=== PATIENT | male | born 1970 | race Two or more races ===

== ENCOUNTER 2020-07-09 09:59 | Outpatient (REF) | payer OTHER, SELFPAY | END 2020-07-09 10:00 | disposition home or self-care (01) | LOC: HO.LAB 09:59 | PROVIDERS: Visit Provider Internal Medicine | DX: Z20.822 Contact with and (suspected) exposure to COVID-19 (principal) | CPT/HCPCS: 36415; C9803; U0003; U0005 ==

== ENCOUNTER 2020-08-22 08:14 | Outpatient (REF) | payer OTHER, SELFPAY ==
[2020-08-22 09:33] LABS: MANUAL DIFF FLAG NO
[2020-08-22 09:37] LABS: Basophils Absolute Auto 0.1 X10*3/uL (0.0-0.2); Eosinophils Absolute Auto 0.2 X10*3/uL (0.0-0.4); Eosinophils Percent Auto 3.2 % (0-4); Hematocrit 47.4 % (42-52); Imm Gran Abs Auto 0.01 X10*3/uL (0.00-0.03); Imm Gran Pct Auto 0.2 % (0.0-0.4); Lymphocytes Percent Auto 40.3 % (20-40); Mean Corpuscular HGB Conc 31.6 g/dl (31.0-36.0); Mean Corpuscular Hemoglobin 27.4 pg (27.0-33.0); Mean Corpuscular Volume 86.7 fL (80-98); Mean Platelet Volume 10.9 fL (9.4-12.4); Monocytes Absolute Auto 0.6 X10*3/uL (0.1-1.2); Monocytes Percent Auto 11.7 % (2-11); Neutrophils Absolute Auto 2.2 X10*3/uL (2.0-8.3); Neutrophils Percent Auto 43.6 % (45-73); Platelet Count 214 X10*3/uL (160-400); Red Blood Count 5.47 X10*6/uL (4.60-5.80); Red Cell Distribution Width 15.4 % (11.0-16.0)
[2020-08-22 09:56] LABS: Alanine Aminotransferase 28 U/L (0-40); Albumin Level 4.4 g/dL (3.5-5.0); Alkaline Phosphatase 78 U/L (39-117); Anion Gap 12 (12-20); Aspartate Amino Transferase 56 U/L (5-37); Bilirubin Total 0.5 mg/dL (0.0-1.0); Blood Urea Nitrogen 25 mg/dL (9-16); Calcium 9.1 mg/dL (8.4-10.2); Carbon Dioxide 28 mmol/L (22-29); Chloride 107 mmol/L (96-108); Cholesterol 192 mg/dL; Estimated Glomerular Filt Rate > 60; Glucose Fasting 103 mg/dL (60-99); HDL Cholesterol 57 mg/dL; LDL Cholesterol Calculated 125 mg/dl; Potassium 5.1 mmol/L (3.3-5.1); Sodium 142 mmol/L (135-145); Total Protein 7.3 g/dL (6.5-8.0); Triglycerides 52 mg/dL
[2020-08-22 10:10] LABS: Hepatitis B Surface Antigen Negative (Negative)
[2020-08-22 10:18] LABS: HBS Num1 0.01 mIU/mL (0-7.99); HBc Num1 0.05 S/CO (0.00-0.79); Hepatitis A Antibody IgM 0.11 Index (0-0.79); Hepatitis B Core Antibody Nonreactive (Nonreactive); ~Hepatitis A Antibody IgM Nonreactive (Nonreactive); ~Hepatitis B Surface Antibody NONREACTIVE (Nonreactive); ~Hepatitis C Antibody Reactive (Nonreactive)
[2020-08-22 10:20] LABS: Prostate Specific Antigen Scr 0.69 ng/mL (<0.05-4.0); TSH reflex Free T4 1.19 uIU/mL (0.32-4.0)
== END 2020-08-22 08:15 | disposition home or self-care (01) ==
LOC: HO.LAB 08:14
PROVIDERS: Visit Provider Nurse Practitioner Family
DX: Z00.00 Encounter for general adult medical examination without abnormal findings (principal); Z12.5 Encounter for screening for malignant neoplasm of prostate
CPT/HCPCS: 36415; 80053; 80061; 84153; 84443; 85025; 86704; 86706; 86709; 86803; 87340

== ENCOUNTER 2020-09-10 12:11 | Emergency (ER) | payer OTHER, SELFPAY ==
[2020-09-10 12:33] VITALS: BP 143/62; PULSE 86; RESP 16; TEMP 36.8; O2SAT 97; BMI 25.0
[2020-09-10 13:27] LABS: COVID-19 Test Negative (Negative); IDNOW Serial# 08D9AD1C
--- NOTE | 2020-09-10 14:02 | ED.GENADULT ---
HPI - General Adult General Chief complaint: General Medical Stated complaint: SORE THROAT Time Seen by Provider: 09/10/20 14:02 Source: patient Mode of arrival: ambulatory Limitations: no limitations History of Present Illness HPI narrative: 50-year-old male history of gastroesophageal reflux disease otherwise denies any past medical or surgical history He presents today with complaint of sore throat and runny nose for the past several days. He otherwise denies any fever, chest pain, shortness of breath No other complaints. No recent travel or sick contacts. Onset (ago): day(s) (5) Radiation: non-radiation Severity: mild Relieving factors: none Exacerbating factors: none Associated symptoms: denies other symptoms Treatments prior to arrival: none Related Data Home Medications Medication Instructions Recorded Confirmed omeprazole 20 mg capsule,delayed 20 mg PO DAILY 08/21/20 release Allergies Allergy/AdvReac Type Severity Reaction Status Date / Time No Known Allergies Allergy Unverified 02/14/20 19:41 [No Known Allergies*] Review of Systems Review of Systems: Constitutional: No Weight loss, No Fever, No Chills, No Night Sweats, No Fatigue, No Malaise ENT/Mouth: No Hearing loss, No Ear Pain, positive Nasal Congestion, No Sinus Pain, No Hoarseness, positive sore throat, positive Rhinorrhea, No Swallowing Difficulty Eyes: No Eye Pain, No Swelling, No Redness, No Foreign Body, No Discharge, No Vision Changes Cardiovascular: No Chest Pain, No SOB, No Dyspnea on Exertion, No Orthopnea, No Edema, No Palpitations Respiratory: No Cough, No Sputum, No Wheezing, No Smoke Exposure, No Dyspnea Gastrointestinal: No Nausea, No Vomiting, No Diarrhea, No Constipation, No abdominal Pain, No Hematochezia, No Melena Genitourinary: no irregular bleeding, No Dysuria, No Urinary Frequency, No Hematuria, No Urinary Incontinence, No Urgency, No Flank Pain, No Urinary Flow Changes, No Hesitancy Musculoskeletal: No joint pain, No Myalgias, No Joint Swelling Skin: No Skin Lesions, No rash Neuro: No Weakness, No Numbness, No Paresthesias, No Loss of Consciousness, No Dizziness, No Headache Psych: No Social Issues Heme/Lymph: No Bruising, No Bleeding,No Lymphadenopathy Endocrine: No Polyuria, No Polydipsia, No Temperature Intolerance Yes all other systems are reviewed and are negative PMFSH Past Medical History Medical History (Updated 09/10/20 @ 14:24 by Mo Hines NP) Physical exam Family History Family History (Updated 08/21/20 @ 08:54 by Bree Baez) Mother Diabetes Father Heart attack Social History Social History (Updated 08/21/20 @ 08:54 by Bree Baez) Alcohol intake: current Smoking Status: Never smoker Advance Directives: No Advance Directives Information Provided: No Physical Exam Vital Signs: Vital Signs: Last Vital Signs Temp 98.3 F 09/10/20 12:33 Pulse 86 09/10/20 12:33 Resp 16 09/10/20 12:33 BP 143/62 H 09/10/20 12:33 Pulse Ox 97 09/10/20 12:33 Body Mass Index 25.0 Reviewed Const: General: cooperative and healthy appearing; No acute distress or intoxicated appearing Nutritional Appearance: average body habitus Orientation/consciousness: patient oriented x3 HENMT: Head: Yes normal to inspection Ears: hearing grossly normal bilaterally Eyes: General: appearance normal, both eyes and all related structures Visual Guthrie: normal visual guthrie by confrontation Neck: Neck: Yes normal visual inspection, No positive Brudzinski's sign, No positive Kernig's sign and No tender Thyroid: Thyroid normal Chest: Chest palpation & inspection: normal inspection of the chest Resp: Effort & Inspection: normal respiratory effort Auscultation: clear to auscultation bilaterally Cardio: Jugular venous distension: no JVD Rhythm: regular rhythm Heart sounds: S1 normal heart sound present and S2 normal heart sound present GI: Inspection: Yes normal to inspection Palpation (GI): Soft to palpation Percussion: Yes normal to percussion Auscultation: normal bowel sounds : General: Yes no CVA tenderness Back/Spine/Pelvis: Back: no CVA tenderness Skin: General skin exam: no rashes or lesions noted Neuro: General: patient oriented x3 Extrem: General: Yes normal to inspection Course Reevaluation(s) Reevaluation #1: AP consistent with mild viral rhinitis, COVID/rapid strep negative will send for culture. Overall nontoxic appearing possibility rest of having false negative COVID test this was reviewed with patient. Will practice precaution return follow-up instructions. Otherwise stable for discharge. Medical Decision Making Lab Data Labs: Lab Results 04/14/21 Range/Units 12:55 COVID-19 ([facility]) Negative (Negative) COVID-19 Clin Com See Note Discharge Plan Discharge Clinical Impression: Viral upper respiratory tract infection Patient Disposition: Home, Self-Care Instructions: Viral Syndrome (ED) Additional Instructions: His strep test was negative today, will send this for culture will call you with results YOUR COVID TEST WAS NEGATIVE TODAY Home care as instructed Return if any concerns or worsening symptoms Follow up with her primary care doctor discussed Thank you Referrals: Yesi Crews NP [Primary Care Provider] - 1 week Stand Alone Forms: Work/School Release
== END 2020-09-10 14:38 | disposition home or self-care (01) ==
PROVIDERS: Emergency Provider Emergency Medicine Emergency Medical Services; PCP Nurse Practitioner Family
DX: J06.9 Acute upper respiratory infection, unspecified (principal); Z20.822 Contact with and (suspected) exposure to COVID-19; J02.9 Acute pharyngitis, unspecified; K21.9 Gastro-esophageal reflux disease without esophagitis
CPT/HCPCS: 36415; 87071; 87635; 87880; 99283

== ENCOUNTER 2021-06-02 11:21 | Emergency (ER) | payer OTHER, SELFPAY ==
--- NOTE | ~2021-06-02 | XR_ITS ---
EXAMINATION: XR CHEST CLINICAL INFORMATION: Hemoptysis COMPARISON: None TECHNIQUE: 2 views of the chest were obtained. FINDINGS: No significant abnormality is noted involving the heart, lungs, mediastinum, bony thorax or soft tissues. XR/XR chest 2V IMPRESSION: Unremarkable examination.
[2021-06-02 12:42] VITALS: BP 155/97; PULSE 69; RESP 18; TEMP 36.7; O2SAT 97; BMI 30.7
[2021-06-02 13:25] LABS: COVID-19 Test Negative (Negative)
--- NOTE | 2021-06-02 13:51 | ED_ITS ---
HPI - URI/Sore Throat General Chief Complaint: Upper Respiratory Symptoms Stated Complaint: covid sx Time Seen by Provider: 06/02/21 13:43 Source: patient Mode of arrival: ambulatory Limitations: no limitations History of Present Illness HPI Narrative: 42-year-old male presents to emergency department complaining of cough. Patient states he is vaccinated for COVID he denies fevers or chills he states that his cough to come with intermittent bloody sputum as well as green sputum. He states he does not know of any sick contacts he has had he denies any falls or injuries he states he does not smoke but does drink out every day Related Data Home Medications Medication Instructions Recorded Confirmed omeprazole 20 mg capsule,delayed 20 mg PO DAILY 08/21/20 release Allergies Allergy/AdvReac Type Severity Reaction Status Date / Time No Known Allergies Allergy Verified 06/02/21 12:41 [No Known Allergies*] Review of Systems Review of Systems: Review of systems: General: Patient denies any fever chills recent illness or falls Musculoskeletal: Denies back pain or body aches or other injuries HEENT: denies headache, runny nose, ear pain Respiratory: Call denies shortness of breath, Cardiovascular: no chest pain or palpitations : denies dysuria, frequency Abdomen: no nausea vomiting denies abdominal pain Extremities: no swelling, no pain Skin: no diaphoresis Yes all other systems are reviewed and are negative PMFSH Past Medical History Medical History (Updated 06/02/21 @ 13:53 by Kunal Kerr DO) Physical exam Family History Family History (Updated 08/21/20 @ 08:54 by Bree Baez) Mother Diabetes Father Heart attack Social History Social History (Updated 08/21/20 @ 08:54 by Bree Baez) Alcohol intake: current Advance Directives: No Advance Directives Information Provided: No Physical Exam Vital Signs: Vital Signs: Last Vital Signs Temp 98.1 F 06/02/21 12:42 Pulse 69 06/02/21 12:42 Resp 18 06/02/21 12:42 BP 155/97 H 06/02/21 12:42 Pulse Ox 97 06/02/21 12:42 BMI result Body Mass Index 30.7 General: Well-appearing well-nourished in no signs of distress HEENT: Normocephalic atraumatic Neck: No signs of JVD, no masses no tenderness or lymphadenopathy Cardiovascular: Regular rate and rhythm Respiratory: Clear to auscultation bilaterally Abdomen: Soft nontender no masses rectal exam performed guiac negative quality control representative confirmed. Extremities: Normal pedal pulses no signs of edema Skin: Dry warm no rashes Back: No tenderness full ROM MDM - URI/Sore Throat MDM Narrative Medical decision making narrative: Patient looks well has a negative x-ray and normal labs COVID is negative I will discharge home with PCP follow Lab Data Labs: Lab Results 06/02/21 Range/Units 12:45 COVID-19 ([facility]) Negative (Negative) COVID-19 Clin Com See Note Discharge Plan Discharge Clinical Impression: Upper respiratory infection, Bronchitis Patient Disposition: Home, Self-Care Instructions: Acute Bronchitis (ED) Additional Instructions: Please call follow-up with her doctor if you have any other concerns please do not hesitate to come back to emergency department
== END 2021-06-02 14:02 | disposition home or self-care (01) ==
PROVIDERS: Emergency Provider Student in an Organized Health Care Education/Training Program
DX: J06.9 Acute upper respiratory infection, unspecified (principal); J40 Bronchitis, not specified as acute or chronic; Z20.822 Contact with and (suspected) exposure to COVID-19
CPT/HCPCS: 71046; 87635; 99283

== ENCOUNTER 2021-10-30 07:01 | Outpatient (REF) | payer OTHER, SELFPAY ==
[2021-10-30 07:22] LABS: Basophils Percent Auto 0.5 % (0-2); Eosinophils Absolute Auto 0.1 X10*3/uL (0.0-0.4); Eosinophils Percent Auto 3.2 % (0-4); Hematocrit 46.6 % (42.0-52.0); Hemoglobin 15.1 g/dl (14.0-18.0); Imm Gran Abs Auto 0.01 X10*3/uL (0.00-0.03); Imm Gran Pct Auto 0.2 % (0.0-0.4); Lymphocytes Absolute Auto 1.5 X10*3/uL (1.2-4.9); Lymphocytes Percent Auto 36.1 % (20-40); MANUAL DIFF FLAG NO; Mean Corpuscular HGB Conc 32.4 g/dl (31.0-36.0); Mean Corpuscular Hemoglobin 27.4 pg (27.0-33.0); Mean Corpuscular Volume 84.4 fL (80.0-98.0); Mean Platelet Volume 10.2 fL (9.4-12.4); Monocytes Absolute Auto 0.4 X10*3/uL (0.1-1.2); Monocytes Percent Auto 9.7 % (2-11); Neutrophils Percent Auto 50.3 % (45-73); Platelet Count 193 X10*3/uL (160-400); Red Blood Count 5.52 X10*6/uL (4.60-5.80)
[2021-10-30 07:44] LABS: Alanine Aminotransferase 25 U/L (0-40); Albumin Level 4.5 g/dL (3.5-5.0); Alkaline Phosphatase 81 U/L (39-117); Anion Gap 12 (12-20); Aspartate Amino Transferase 58 U/L (5-37); Bilirubin Total 0.7 mg/dL (0.0-1.0); Blood Urea Nitrogen 14 mg/dL (9-16); Calcium 9.8 mg/dL (8.4-10.2); Carbon Dioxide 27 mmol/L (22-29); Chloride 104 mmol/L (96-108); Cholesterol 211 mg/dL; Estimated Glomerular Filt Rate > 60; Glucose Random 122 mg/dL (60-115); HDL Cholesterol 69 mg/dL; LDL Cholesterol Calculated 131 mg/dl; Potassium 3.8 mmol/L (3.3-5.1); Sodium 139 mmol/L (135-145); Total Protein 7.5 g/dL (6.5-8.0); Triglycerides 58 mg/dL
[2021-10-30 07:48] LABS: Estimated Average Glucose 108 mg/dL; Hemoglobin A1c % 5.4 %
[2021-10-30 08:03] LABS: ~HepC Num1 1.37 S/CO (0.00-0.79); ~Hepatitis C Antibody Reactive (Nonreactive)
[2021-10-30 09:03] LABS: Folate 18.5 ng/mL (> or = 4.0); Vitamin B12 258 pg/mL (200-900)
[2021-11-01 13:06] LABS: HCV RNA PCR Qn <1.18 NOT DETECTED Log IU/mL (NOT DETECTED); HCV RNA PCR Qn <15 NOT DETECTED IU/mL (NOT DETECTED)
== END 2021-10-30 07:02 | disposition home or self-care (01) ==
LOC: HO.LAB 07:01
PROVIDERS: PCP Internal Medicine; Visit Provider Internal Medicine
DX: R76.8 Other specified abnormal immunological findings in serum (principal); R73.01 Impaired fasting glucose; E78.00 Pure hypercholesterolemia, unspecified
CPT/HCPCS: 36415; 80053; 80061; 82607; 82746; 83036; 84439; 84443; 85025; 86803; 87902

== ENCOUNTER 2022-01-07 07:59 | Outpatient (REF) | payer OTHER, SELFPAY ==
--- NOTE | ~2022-01-07 | US_ITS ---
EXAMINATION: US ABDOMEN COMPLETE CLINICAL INFORMATION: Other specified abnormal findings of blood chemistry. COMPARISON: None TECHNIQUE: Real-time imaging of the abdominal viscera. FINDINGS: PANCREAS: Limited. The visualized pancreatic head and body are normal in appearance. The remainder of the pancreas is obscured from visualization by the overlying bowel gas. ABDOMINAL AORTA: The proximal, mid, and distal segments are normal in caliber. INFERIOR VENA CAVA: Visualized portions are normal. LIVER: The liver is normal in size. The liver contour is normal. There is diffuse increased liver parenchymal echogenicity. No focal hepatic lesion. There is no intrahepatic biliary duct dilatation seen. GALLBLADDER: Normal. The gallbladder is physiologically distended without evidence of stones, sludge, polyps, wall thickening or pericholecystic fluid. COMMON BILE DUCT: Normal in caliber measuring 0.4 cm in diameter. RIGHT KIDNEY: Normal. No hydronephrosis. No renal calculi or focal parenchymal lesions. The kidney measures 11.3 cm in maximum dimension. LEFT KIDNEY: Normal. No hydronephrosis. No renal calculi or focal parenchymal lesions. The kidney measures 10.6 cm in maximum dimension. SPLEEN: Normal. The spleen measures 11.3 cm in maximum dimension. FREE FLUID: None. US/US abdomen complete IMPRESSION: There is generalized increase in hepatic echotexture, consistent with fatty infiltration or hepatocellular disease. Please correlate clinically. No focal hepatic mass or intrahepatic biliary dilatation is seen.
== END 2022-01-07 08:00 | disposition home or self-care (01) ==
LOC: HO.US 07:59
PROVIDERS: Visit Provider Internal Medicine
DX: R79.89 Other specified abnormal findings of blood chemistry (principal); Z12.11 Encounter for screening for malignant neoplasm of colon
CPT/HCPCS: 76700; 99202

== ENCOUNTER 2022-05-03 09:44 | Emergency (ER) | payer OTHER, SELFPAY ==
--- NOTE | 2022-05-03 | ECG_ITS ---
Test Reason : med clearance Blood Pressure : / mmHG Vent. Rate : 076 BPM Atrial Rate : 076 BPM P-R Int : 158 ms QRS Dur : 086 ms QT Int : 348 ms P-R-T Axes : 054 000 029 degrees QTc Int : 391 ms Normal sinus rhythm Normal ECG No previous ECGs available Referred By: Generic ED Physician Electronically Signed By:GEREMIAS EL MD
[2022-05-03 10:05] VITALS: BP 143/84; PULSE 70; RESP 18; TEMP 36.6; O2SAT 97
[2022-05-03 11:05] LABS: IDNOW Serial# 08D9AD1C; Strep A Nucleic Acid Negative (Negative)
[2022-05-03 11:26] LABS: Influenza A PCR NEGATIVE (Negative); Influenza B PCR NEGATIVE (Negative); Resp Syncy Virus RNA Qual PCR NEGATIVE (Negative); SARS COV2 PCR INHOUSE POSITIVE (Negative)
[2022-05-03 12:21] VITALS: BP 128/78; PULSE 74; RESP 16; TEMP 37.2; O2SAT 96
--- NOTE | 2022-05-03 13:10 | ED.GENADULT ---
HPI - General Adult General Chief complaint: Upper Respiratory Symptoms Stated complaint: sore throat nasal congestion Time Seen by Provider: 05/03/22 12:25 Source: patient Mode of arrival: ambulatory Limitations: no limitations History of Present Illness HPI narrative: 51-year-old male presents to ED for coughing phlegm and chest pain only when he cough with nasal congestion since Tuesday. Patient also has sore throat. Related Data Home Medications Medication Instructions Recorded Confirmed omeprazole 20 mg capsule,delayed 20 mg PO DAILY 08/21/20 01/15/22 release Previous Rx's Medication Instructions Recorded blood pressure monitor (Blood #1 ea 10/27/21 Pressure Kit) clotrimazole 1 % topical cream 1 appl topical BID 4 weeks #45 10/27/21 grams bisacodyl 5 mg tablet,delayed 10 mg PO ONCE colonoscopy prep 1 01/07/22 release (Dulcolax (bisacodyl)) day #2 tabs polyethylene glycol 3350 17 238 g PO ONCE 1 day #238 grams 01/07/22 gram/dose oral powder (Miralax) Allergies Allergy/AdvReac Type Severity Reaction Status Date / Time No Known Allergies Allergy Verified 05/03/22 10:08 [No Known Allergies*] Review of Systems Review of Systems: Cough, sore throat, green phlegm Yes all other systems are reviewed and are negative [facility] Past Medical History Medical History (Updated 05/03/22 @ 13:18 by SALLY Chau) Hepatitis C antibody positive in blood Overweight (BMI 25.0-29.9) Polysubstance abuse Surgical History (Updated 01/15/22 @ 10:21 by Breann Bernard RN) History of esophagogastroduodenoscopy (EGD) Family History Family History Mother Diabetes Father Heart attack Social History Social History Housing: Apartment Alcohol intake: current Patient Tobacco Use Status: Former Tobacco user Tobacco use type: Cigarette Years Smoked: [id number] e-Cigarette/Vaping Use: Never Used Second Hand Smoke Exposure: No Advance Directives: No Advance Directives Information Provided: Yes Current occupational status: employed Cognitive needs: No Hearing needs: No Vision needs: No Physical Exam ED Vital Signs: Vital Signs - 24 hr 05/03/22 10:05 05/03/22 12:21 Temperature 97.9 F 99.0 F Pulse Rate 70 74 Respiratory Rate 18 16 Blood Pressure 143/84 H 128/78 Pulse Oximetry 97 96 Oxygen Delivery Method Room Air Room Air BMI result Body Mass Index 30.0 Const General: cooperative, healthy appearing, comfortable, no acute distress, well developed, alert and awake Orientation/consciousness: oriented to person, oriented to place, oriented to time and patient oriented x3 HENMT Head: Yes normal to inspection, Yes No palpable skull fracture present, Yes normocephalic, Yes atraumatic and No abrasion Eyes General: appearance normal, both eyes and all related structures Neck Neck: Yes normal visual inspection, Yes full ROM, Yes no lymphadenopathy, Yes no meningeal signs, Yes trachea midline, No supple and No tender Chest Chest palpation & inspection: normal inspection of the chest and normal palpation of entire chest wall Resp Effort & Inspection: normal respiratory effort and able to speak in complete sentences Auscultation: clear to auscultation bilaterally Cardio Jugular venous distension: no JVD Heart sounds: S1 normal heart sound present and S2 normal heart sound present GI Inspection: Yes normal to inspection and No abdominal wall ecchymosis Palpation (GI): Soft to palpation, not firm, nontender, no guarding and not rigid General: No CVA tenderness and Yes no CVA tenderness Back/Spine/Pelvis Back: no CVA tenderness, No CVA tenderness and No back tenderness Skin General skin exam: no rashes or lesions noted and elasticity normal Neuro General: oriented to person, oriented to place, oriented to time, patient oriented x3, gait normal, tone normal and no meningeal signs Cranial nerves: Yes CN's II-XII intact bilaterally Extrem General: Yes normal to inspection and Yes full ROM Psych Appearance: grossly normal, well kempt and not disheveled Course Course Course Narrative: SARs EKG ordered. Reevaluation(s) Reevaluation #1: EKG negative STEMI. SARs COVID positive. EKG: Normal sinus rhythm. Normal EKG. Ventricular rate 76. OR interval 150. QRS 86. QTC 391. Negative STEMI Time: 13:15 Medical Decision Making Medical Decision Making [facility] Narrative: Patient's SARs COVID positive. Not suspecting OR. patient not in respiratory distress Discharge Plan Discharge Clinical Impression: COVID-19 Patient Disposition: Home, Self-Care Instructions: COVID-19 (Coronavirus Disease 2019) (ED) Additional Instructions: Eres positivo para COVID-19. Recomendar reposo, hidrataci?n oral y autoaislamiento. Regrese al servicio de urgencias por cualquier dolor en el pecho, dificultad para respirar, tos con magaly, hinchaz?n de las piernas, dolor en la pantorrilla, debilidad, mareos, cualquier otro s?ntoma preocupante. Por favor, chuck un seguimiento con el proveedor de atenci?n primaria. Prescriptions: No Action omeprazole 20 mg capsule,delayed release(DR/EC) 20 mg PO DAILY (DME) blood pressure monitor [Blood Pressure Kit] Kit See Rx Instructions .ROUTE .MEDSUPPLY Qty: 1 0RF Rx Instructions: As directed clotrimazole 1 % cream 1 appl topical BID 28 Days Qty: 45 0RF bisacodyl [Dulcolax (bisacodyl)] 5 mg tablet,delayed release (DR/EC) 10 mg PO ONCE 1 Days Qty: 2 0RF Rx Instructions: Take 2 tablets by mouth at 12:00pm the day before your procedure. polyethylene glycol 3350 [Miralax] 17 gram/dose powder 238 g PO ONCE 1 Days Qty: 238 0RF Rx Instructions: Take as directed by mouth the day before your procedure. Stand Alone Forms: Work/School Release Interventions: ED Discharge Assessment Last Done: 05/03/22 13:22 Discharge Date/Time: 05/03/22 13:22 Print Language: [place]
== END 2022-05-03 13:22 | disposition home or self-care (01) ==
PROVIDERS: Emergency Provider Emergency Medicine; PCP Internal Medicine
DX: U07.1 COVID-19 (principal); J02.9 Acute pharyngitis, unspecified; R05.9 Cough, unspecified; Z87.891 Personal history of nicotine dependence; Z79.899 Other long term (current) drug therapy
CPT/HCPCS: 0241U; 36415; 87651; 93005; 99283; 99284

== ENCOUNTER 2023-03-03 09:55 | Outpatient (AMB) | payer OTHER, SELFPAY ==
--- NOTE | 2023-03-03 09:56 | MHC.PC.OV ---
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 Name: [id number] Yarelirosita Information Interpreted: non-clinical & clinical Allergies No Known Allergies [No Known Allergies*] Allergy (Verified 03/03/23 10:19) Medication List - Last Reconciled 03/03/23 by HOLLIS Avelar blood pressure monitor (Blood Pressure Kit) As directed omeprazole 20 mg PO DAILY Tobacco use date assessed: 03/03/23 Dental Screening Dental Screen Date: 03/03/23 Did you have a dental visit in the last 12 months?: No Did you have a dental problem in the last 6 months where you did not have access to dental care?: No HPI HPI Comments History of Present Illness Details 52-year-old male past medical history significant for impaired fasting glucose, Hep C. Patient Dr. Taylor last seen in January 2022 presents today for follow-up on left foot pain. Left foot pain and swelling since last year. Denies acute injury. patient reports was following with podiatry was recommending a boot and prescribed medicine but stopped following with them due to transportation issues at the time. Patient continues to experience left foot pain and occasional swelling. Patient previously follow by Dr. Alex podiatry, will send referral to re-establish care. 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 Work note give. Patient has puritic erythema noted to left flank x 2 days denies new lotions, soaps, detergents or products Patient concerned for shingles, not noted fluid filled vesicles. Patient reassured, recommend to use OTC steroid cream bid x 2 weeks if not improvement follow up. [facility] Medical History (Updated 03/03/23 @ 10:28 by HOLLIS Avelar) Polysubstance abuse Hepatitis C antibody positive in blood Overweight (BMI 25.0-29.9) Surgical History (Updated 01/15/22 @ 10:21 by Breann Bernard RN) History of esophagogastroduodenoscopy (EGD) Family History Mother Diabetes Father Heart attack Social History Housing: Apartment Alcohol intake: current Patient Tobacco Use Status: Former Tobacco user Tobacco use type: Cigarette Years Smoked: [id number] e-Cigarette/Vaping Use: Never Used Second Hand Smoke Exposure: No Current occupational status: employed Cognitive needs: No Hearing needs: No Vision needs: No Questionnaire PHQ-9 Over the last 2 weeks, how often have you been bothered by any of the following problems? 1. Little interest or pleasure in doing things: not at all 2. Feeling down, depressed, or hopeless: not at all 3. Trouble falling or staying asleep, or sleeping too much: not at all 4. Feeling tired or having little energy: not at all 5. Poor appetite or overeating: not at all 6. Feeling bad about yourself - or that you are a failure or have let yourself or your family down: not at all 7. Trouble concentrating on things, such as reading the newspaper or watching television: not at all 8. Moving or speaking so slowly that other people could have noticed. Or the opposite - being so fidgety or restless that you have been moving around a lot more than usual: not at all 9. Thoughts that you would be better off or of hurting yourself in some way: not at all Total score: 0 Depression Screening Interpretation: Negative Depression Screening Done: Yes Source: Developed by Drs. Darrell Harry, Shira Vicente, Jersey Tinajero and colleagues, with an educational carolina from [employer] Thrive Questionnaire Date Thrive assessed: 03/03/23 I am a: Patient What is your living situation today?: I have a steady place to live Within the past 12 months, did the food you bought not last and you didn't have the money to get more?: Never true Within the past 12 months, did you worry whether your food would run out before you got money to buy more?: Never true Do you have trouble paying for medicines?: No Do you have trouble getting transportation to medical appointments?: No Do you have trouble paying your heating and electricity bill?: No Do you have trouble taking care of your child, family member or friend?: No Do you have trouble with day-to-day activities such as bathing, preparing meals, shopping, managing finances, etc.?: No Are you currently unemployed and looking for a job?: No Are you interested in more education?: No AUDIT C Alcohol Use Questionnaire (AUDIT-C) 1. How often do you have a drink containing alcohol?: 2-4 times a month 2. How many drinks containing alcohol do you have on a typical day when you are drinking?: 1 or 2 3. How often do you have six or more drinks on one occasion?: Never Total Score: 2 Score Reviewed/Action Taken: Yes YOESF-7 AMB Questionnaire YOSEF-7 Date YOSEF - 7 assessed: 03/03/23 Not being able to stop or control worryin = Not at all Worrying too much about different things: 0 = Not at all Trouble relaxin = Not at all Being so restless that it is hard to sit still: 0 = Not at all Becoming easily annoyed or irritable: 0 = Not at all Feeling afraid as if something awful might happen: 0 = Not at all Source: Developed by Drs. Darrell Harry, Shira Vicente, Jersey Tinajero and colleagues, with an educational carolina from [employer] Review of Systems Const Denies chills, Denies fatigue, Denies fever(s) and Denies poor appetite Eyes Denies no additional complaints ENT Reports Normal hearing present Card Denies chest pain, Denies syncope, Denies rapid heart rate and Denies dyspnea Resp Denies cough and Denies dyspnea GI Denies change in stool character, Denies constipation, Denies diarrhea, Denies nausea and Denies vomiting Denies dysuria, Denies urinary frequency and Denies urinary urgency Musc Reports other (left foot pain ) Neuro Reports Normal hearing present, Denies confusion and Denies syncope Psych Denies confusion Endo Denies fatigue Physical exam (Primary Care) Vital Signs: Last Vital Signs Pulse 75 03/03/23 09:57 BP 138/90 H 03/03/23 09:57 Pulse Ox 97 03/03/23 09:57 Oxygen Delivery Method Room Air 03/03/23 09:57 BMI result Body Mass Index 29.9 Tobacco/Smoking Status: Tobacco use Status Tobacco use date assessed 03/03/23 03/03/23 09:58 Patient Tobacco Use Status Former Tobacco user 03/03/23 09:58 Tobacco use type Cigarette 03/03/23 09:58 e-Cigarette/Vaping Use Never Used 03/03/23 09:58 PHQ-9: PHQ-9 Score PHQ-9: Total score 0 03/03/23 10:23 Depression Screening Interpretation: Negative Thrive Assessment: Date of Thrive Assessment Date Thrive assessed 03/03/23 03/03/23 09:58 Const General: No confusion Orientation/consciousness: No confusion HENMT Head: Yes normocephalic and Yes atraumatic Eyes Conjunctivae: conjunctivae normal Chest Chest palpation & inspection: normal inspection of the chest Resp Effort & Inspection: normal respiratory effort Auscultation: clear to auscultation bilaterally, no crackles, no rhonchi and no wheezes Cardio Rate: regular rate Rhythm: regular rhythm Heart sounds: S1 normal heart sound present and S2 normal heart sound present GI Inspection: Yes normal to inspection Skin Full body images: 1. mild erythema, no open areas or fluid filled vesicles. Neuro General: No confusion Cranial nerves: Yes Normal hearing present Extrem General: No edema Right lower extremity: normal to inspection and normal capillary refill Left lower extremity: normal to inspection, normal capillary refill, ankle Details: abnormal ROM Details: pain with active ROM; no tenderness, no swelling and no warmth and foot Details: normal capillary refill and toes with normal ROM; no tenderness, no unusual warmth and no edema Office Procedures Flu Questionnaire Does the patient have a severe egg allergy?: No Does the patient have severe life threatening allergies?: No Does the patient have a fever or illness today?: No Has the patient ever had Guillain-Lolo Syndrome?: No Has the patient ever had any past reaction to a flu shot?: No Immunizations flu vacc [id number] 6mos up(PF) 60 mcg(15 mcgx4)/0.5 mL IM syringe Performing Provider: HOLLIS Avelar Performing Location: [facility] Administered by: CLAIRE Gomez on 03/03/23 10:06 Dose Route Admin Location Dispensed Lot Number Expiration Date 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 New referral entered. Work note given as noted in HPI. Orders: Orders Influenza [id number] Immunization Today Z23 - Encounter for immunization Referrals Podiatry Referral M79.672 - Pain in left foot Medications: New ibuprofen 400 mg PO Q6H PRN 20 tabs 0RF pain M79.672 - Pain in left foot Coding Level of Care Code Est Pt Level 3 (28026) Diagnoses Left foot pain M79.672
[2023-03-03 09:57] VITALS: BP 138/90; PULSE 75; O2SAT 97; BMI 29.9
== END 2023-03-03 10:43 | disposition home or self-care (01) ==
PROVIDERS: PCP Internal Medicine; Visit Provider Nurse Practitioner Family
DX: M79.672 Pain in left foot (principal); Z23 Encounter for immunization
CPT/HCPCS: 90471; 90686; 99213

== ENCOUNTER 2023-06-08 09:34 | Emergency (ER) | payer OTHER, SELFPAY ==
--- NOTE | ~2023-06-08 | XR_ITS ---
EXAMINATION: CHEST, LEFT SHOULDER, LEFT ELBOW CLINICAL INFORMATION: Left chest, left shoulder and left elbow pain COMPARISON: Chest radiograph 06/02/2021 TECHNIQUE: 2 views chest, 3 views shoulder, 3 views of FINDINGS: No significant abnormalities seen involving the heart, lungs, mediastinum or bony thorax. No bone joint or soft tissue abnormalities seen involving the left shoulder or left elbow. XR/XR shoulder LT min 2V IMPRESSION: Unremarkable examinations.
--- NOTE | ~2023-06-08 | XR_ITS ---
EXAMINATION: CHEST, LEFT SHOULDER, LEFT ELBOW CLINICAL INFORMATION: Left chest, left shoulder and left elbow pain COMPARISON: Chest radiograph 06/02/2021 TECHNIQUE: 2 views chest, 3 views shoulder, 3 views of FINDINGS: No significant abnormalities seen involving the heart, lungs, mediastinum or bony thorax. No bone joint or soft tissue abnormalities seen involving the left shoulder or left elbow. XR/XR chest 2V IMPRESSION: Unremarkable examinations.
--- NOTE | ~2023-06-08 | XR_ITS ---
EXAMINATION: CHEST, LEFT SHOULDER, LEFT ELBOW CLINICAL INFORMATION: Left chest, left shoulder and left elbow pain COMPARISON: Chest radiograph 06/02/2021 TECHNIQUE: 2 views chest, 3 views shoulder, 3 views of FINDINGS: No significant abnormalities seen involving the heart, lungs, mediastinum or bony thorax. No bone joint or soft tissue abnormalities seen involving the left shoulder or left elbow. XR/XR elbow LT min 3V IMPRESSION: Unremarkable examinations.
[2023-06-08 10:09] VITALS: BP 141/77; PULSE 98; RESP 16; TEMP 36.7; O2SAT 98; BMI 29.0
--- NOTE | 2023-06-08 14:12 | ED_ITS ---
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 Walking down stairs when he slipped on the last step, falling onto his left side. Denies headstrike or LOC. Has not taken any medications for this at home. Denies fever, chills, vision changes, MAR, neck or back pain, chest pain, sob, dyspnea, numbness/tingling/weakness of the LUE, bowel or bladder incontinence or retention, saddle anesthesia. Related Data Home Medications Medication Instructions Recorded Confirmed omeprazole 20 mg capsule,delayed 20 mg PO DAILY 08/21/20 03/03/23 release Previous Rx's Medication Instructions Recorded blood pressure monitor (Blood #1 ea 10/27/21 Pressure Kit) ibuprofen 400 mg tablet 400 mg PO Q6H PRN pain #20 tabs 03/03/23 cyclobenzaprine 5 mg tablet 5 mg PO BEDTIME PRN muscle spasm 06/08/23 #7 tabs lidocaine 5 % topical patch 1 patch topical DAILY #15 ea 06/08/23 (Lidoderm) naproxen 500 mg tablet 500 mg PO Q8-12H PRN pain (scale 06/08/23 score 4-6) #20 tabs Allergies Allergy/AdvReac Type Severity Reaction Status Date / Time No Known Allergies Allergy Verified 03/03/23 10:19 [No Known Allergies*] Review of Systems Review of Systems: Constitutional: No fever, chills, fatigue, night sweats, weight changes ENT/Mouth: No ear pain, hearing loss, nasal congestion, sinus pain, rhinorrhea, sore throat Eyes: No eye pain, swelling, redness, vision changes, discharge Cardio: No chest pain, palpitations, ARTEAGA, orthopnea, peripheral edema Pulm: No SOB, cough, sputum, wheezing, dyspnea, hemoptysis GI: No nausea, vomiting, hematemesis, abdominal pain, diarrhea, constipation, hematochezia, melena : No irregular bleeding, dysuria, frequency, urgency, hesitancy, hematuria, flank pain, urinary flow changes, urinary incontinence or retention MSK: No back pain, No neck pain, joint pain, myalgias, +left shoulder and elbow pain Skin: No lesions, rashes Neuro: No weakness, numbness, paresthesias, LOC, dizziness, headache All other systems reviewed and are negative. [facility] Past Medical History Onset Date is defined in the Problem List Problems that require an onset date and time if occurred within 24 hrs of arrival to the ED Aortic Dissection and Rupture; Neurologic impairment; Cardiopulmonary Arrest; Endotracheal Intubation; Insertion or Replacement of Mechanical Circulatory Assist Device Medical History (Updated 06/08/23 @ 14:30 by SALLY Pan) Polysubstance abuse Hepatitis C antibody positive in blood Overweight (BMI 25.0-29.9) Surgical History (Updated 01/15/22 @ 10:21 by Breann Bernard RN) History of esophagogastroduodenoscopy (EGD) Family History Family History Mother Diabetes Father Heart attack Social History Social History Housing: Apartment Alcohol intake: current Patient Tobacco Use Status: Former Tobacco user Tobacco use type: Cigarette Years Smoked: [id number] e-Cigarette/Vaping Use: Never Used Second Hand Smoke Exposure: No Advance Directives: No Current occupational status: employed Cognitive needs: No Hearing needs: No Vision needs: No Physical Exam ED Vital Signs: Vital Signs - 24 hr 06/08/23 10:09 06/08/23 15:55 Temperature 98.1 F Pulse Rate 98 66 Respiratory Rate 16 16 Blood Pressure 141/77 H 153/94 H Pulse Oximetry 98 99 Oxygen Delivery Method Room Air Room Air BMI result Body Mass Index 29.0 Patient hypertensive, vitals otherwise wnl. Const General: cooperative, healthy appearing, comfortable, no acute distress, alert, awake and Physically active Orientation/consciousness: patient oriented x3 HENMT Head: Yes normal to inspection, Yes No palpable skull fracture present, Yes normocephalic and Yes atraumatic Eyes General: appearance normal, both eyes and all related structures Pupils: Equal, round and reactive pupils present EOM: EOMs intact bilaterally Neck Neck: Yes normal visual inspection and Yes full ROM Chest Chest palpation & inspection: normal inspection of the chest, normal palpation of entire chest wall, no crepitus and no tenderness Resp Effort & Inspection: normal respiratory effort and symmetric chest movement Auscultation: clear to auscultation bilaterally Cardio Other: + 2+ radial and ulnar pulses Rate: regular rate Rhythm: regular rhythm GI Inspection: Yes normal to inspection Palpation (GI): Soft to palpation and nontender Back/Spine/Pelvis Other: No midline spinous tenderness. No paraspinal muscle tenderness. No step off deformity. Skin General skin exam: no rashes or lesions noted Neuro Other: Strength 5/5 intact throughout.? No saddle anesthesia.? Sensation intact to light touch.? Neurovascular intact distally.? General: patient oriented x3 and gait normal Cranial nerves: Yes Equal, round and reactive pupils present Gait exam (Neuro): Normal gait present Extrem Other: + left shoulder and elbow with full ROM intact. strength 5/5 intact. no overlying deformity or skin changes. no palpable deformity or tenderness. no crepitus. Course Course Course Narrative: 0430-- XR left ribs, shoulder and elbow do not demonstrate acute fracture. exam unremarkable. will send home with flexeril and lido patches. discussed return precautions. Patient has remained stable throughout ED visit today. All questions answered at this time. Patient is agreeable with disposition and stable for discharge. Medications Administered Discontinued Medications Generic Name Dose Route Start Last Admin Trade Name Freq PRN Reason Stop Dose Admin Ketorolac Tromethamine 30 mg 06/08/23 14:28 06/08/23 15:46 Ketorolac Tromethamine 30 Mg/Ml Vial IM 06/08/23 14:29 30 mg ONCE ONE Administration Medical Decision Making Medical Decision Making [facility] Narrative: 52 year old male with pmhx significant for Hep C and HTN presents to the ED today for evaluation of left shoulder, left elbow, and left rib pain s/p slip and fall on ice yesterday. Patient is noted to be hypertensive to 141/77. Full ROM intact to left shoulder and elbow. Chest wall without deformity, tenderness or crepitus. Lungs cta b/l. exam nonfocal. ambulating with steady gait. exam essentially unremarkable. Concern for MSK sprain/strain, fracture, contusion, asthritis. Unlikely cord compression, cauda equina, pneumothorax, rib fracture, flail chest, NV compromise, threat to limb, compartment syndrome. Plan for imaging and pain control. Differential Diagnosis Differential Diagnoses: The differential diagnosis associated with the presentation includes as above Admission/Observation Not indicated. Independent Interpretation I performed an independent interpretation of an: Plain X-Ray Interpretation: I personally reviewed xrays and agree with radiologist's interpretation. Radiology Impression Discussion of test interpretation with radiology: I have reviewed the radiologist's reading. Radiologist Impression: XR shoulder/elbow LT and chest min 2V IMPRESSION: Unremarkable examinations. Independent Historian Clinical information obtained from an independent historian. History obtained from or confirmed by: Spouse External Record Review External record reviewed: Inpatient record Prescription Management I considered prescription management with: Pain Medication and Other (Muscle relaxer, steroid) Discharge Plan Discharge Clinical Impression: Accident due to mechanical fall without injury, Acute shoulder pain Patient Disposition: Home, Self-Care Instructions: Heat Pack Application (ED), Fall Prevention (ED), Shoulder Pain (ED) Additional Instructions: Your imaging studies today did not show acute fracture. Your pain is likely musculoskeletal. Avoid bending, lifting, or twisting. Use ice several times per day for 20 minutes at a time for the next 48 hours and then change to heat. Flexeril is a muscle relaxer. Take this at night as it makes you drowsy. Do not drive, drink alcohol, or operate machinery while taking it. You may take Tylenol and ibuprofen at home for pain. Lidoderm patches are numbing patches. Apply to painful areas. Follow up with your primary care provider as needed If your pain worsens, if you develop new numbness, tingling, weakness, loss of bowel or bladder function call 911 or return to the ER immediately for evaluation. Bridget estudios de imagen de hoy no mostraron fractura aguda. Es probable que heredia dolor sea musculoesquel?silvia. Evite doblarse, levantarse o torcerse. Use hielo varias veces al d?a paige 20 minutos a la vez paige las siguientes 48 horas y luego c?mbielo a calor. Flexeril es un relajante muscular. T?mai por la noche ya que le produce maria esther?o. No conduzca, que alcohol ni opere maquinaria mientras lo est? tomando. Puede pura Tylenol e ibuprofeno en casa para el dolor. Los parches de Lidoderm son parches adormecedores. Aplicar en las zonas dolorosas. Abhijit un seguimiento con heredia proveedor de atenci?n primaria seg?n sea necesario Si heredia dolor empeora, si desarrolla nuevo entumecimiento, hormigueo, debilidad, p?rdida de la funci?n intestinal o vesical, llame al 911 o regrese a la garrison de emergencias de inmediato para millicent evaluaci?n. Prescriptions: New naproxen 500 mg tablet 500 mg PO Q8-12H PRN (Reason: pain (scale score 4-6)) Qty: 20 0RF lidocaine [Lidoderm] 5 % adhesive patch,medicated 1 patch topical DAILY Qty: 15 0RF Rx Instructions: leave on most painful area for up to 12 hrs cyclobenzaprine 5 mg tablet 5 mg PO BEDTIME PRN (Reason: muscle spasm) Qty: 7 0RF No Action omeprazole 20 mg capsule,delayed release(DR/EC) 20 mg PO DAILY (DME) blood pressure monitor [Blood Pressure Kit] Kit See Rx Instructions .ROUTE .MEDSUPPLY Qty: 1 0RF Rx Instructions: As directed ibuprofen 400 mg tablet 400 mg PO Q6H PRN (Reason: pain) Qty: 20 0RF Stand Alone Forms: Work/School Release Interventions: ED Discharge Assessment Last Done: 06/08/23 15:56 Discharge Date/Time: 06/08/23 15:56 Print Language: Korean
[2023-06-08] MEDS: Ketorolac Tromethamine 30 MG/ML VIAL IM (15:46)
[2023-06-08 15:55] VITALS: BP 153/94; PULSE 66; RESP 16; O2SAT 99
== END 2023-06-08 15:56 | disposition home or self-care (01) ==
PROVIDERS: Emergency Provider Emergency Medicine; PCP Internal Medicine
DX: Z04.3 Encounter for examination and observation following other accident (principal); M25.512 Pain in left shoulder; Z91.81 History of falling; I10 Essential (primary) hypertension; B19.20 Unspecified viral hepatitis C without hepatic coma; F19.10 Other psychoactive substance abuse, uncomplicated; Z87.891 Personal history of nicotine dependence
CPT/HCPCS: 71046; 73030; 73080; 96372; 99283; 99284; J1885

== ENCOUNTER 2024-07-26 10:22 | Outpatient (AMB) | payer OTHER, SELFPAY ==
[2024-07-26 10:35] VITALS: BP 138/92; PULSE 73; O2SAT 98; BMI 30.8
--- NOTE | 2024-07-26 10:35 | MHC.PC.OV ---
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 Language: [place] Allergies No Known Allergies [No Known Allergies*] Allergy (Verified 07/26/24 10:36) Medication List - Last Reconciled 07/26/24 by Nitin Taylor MD blood pressure monitor (Blood Pressure Kit) As directed omeprazole 20 mg PO DAILY Tobacco use date assessed: 07/26/24 Dental Screening Dental Screen Date: 07/26/24 Did you have a dental visit in the last 12 months?: No Did you have a dental problem in the last 6 months where you did not have access to dental care?: No Was dental information given to patient?: Patient has dentist HPI Annual pe HPI Details ghislaineselina violette translating [facility] Medical History (Updated 07/26/24 @ 12:09 by Nitin Taylor MD) Polysubstance abuse Hepatitis C antibody positive in blood Overweight (BMI 25.0-29.9) Surgical History (Updated 01/15/22 @ 10:21 by Breann Bernard RN) History of esophagogastroduodenoscopy (EGD) Family History (Updated 07/26/24 @ 10:37 by Lu Ervin CMA) Mother Diabetes Father Heart attack Social History (Updated 07/26/24 @ 11:48 by Nitin Taylor MD) Housing: Apartment Alcohol intake: current Comment: QD 6 pack Patient Tobacco Use Status: Former Tobacco user Tobacco use type: Cigarette Years Smoked: [id number] e-Cigarette/Vaping Use: Never Used Second Hand Smoke Exposure: No Current occupational status: employed Cognitive needs: No Hearing needs: No Vision needs: Yes Questionnaire PHQ-9 Over the last 2 weeks, how often have you been bothered by any of the following problems? 1. Little interest or pleasure in doing things: not at all 2. Feeling down, depressed, or hopeless: not at all 3. Trouble falling or staying asleep, or sleeping too much: not at all 4. Feeling tired or having little energy: not at all 5. Poor appetite or overeating: not at all 6. Feeling bad about yourself - or that you are a failure or have let yourself or your family down: not at all 7. Trouble concentrating on things, such as reading the newspaper or watching television: not at all 8. Moving or speaking so slowly that other people could have noticed. Or the opposite - being so fidgety or restless that you have been moving around a lot more than usual: not at all 9. Thoughts that you would be better off or of hurting yourself in some way: not at all Total score: 0 Depression Screening Interpretation: Negative Depression Screening Done: Yes 72021 - PHQ-9 Billing: Yes Source: Developed by Drs. Darrell Harry, Shira Vicente, Jersey Tinajero and colleagues, with an educational carolina from [employer]. Thrive Questionnaire Date Thrive assessed: 07/26/24 I am a: Patient What is your living situation today?: I have a steady place to live Within the past 12 months, did the food you bought not last and you didn't have the money to get more?: Never true Within the past 12 months, did you worry whether your food would run out before you got money to buy more?: Never true Do you have trouble paying for medicines?: No Do you have trouble getting transportation to medical appointments?: No Do you have trouble paying your heating and electricity bill?: No Do you have trouble taking care of your child, family member or friend?: No Do you have trouble with day-to-day activities such as bathing, preparing meals, shopping, managing finances, etc.?: No Are you currently unemployed and looking for a job?: No Are you interested in more education?: No Currently or been in a relationship where the following occur: No concerns reported THRIVE Score: 0 AUDIT C Alcohol Use Questionnaire (AUDIT-C) 1. How often do you have a drink containing alcohol?: 2-4 times a month 2. How many drinks containing alcohol do you have on a typical day when you are drinking?: 1 or 2 3. How often do you have six or more drinks on one occasion?: Never Total Score: 2 Score Reviewed/Action Taken: Yes YOSEF-7 AMB Questionnaire YOSEF-7 Date YOSEF - 7 assessed: 07/26/24 Feeling nervous, anxious, or on edge: 0 = Not at all Not being able to stop or control worryin = Not at all Worrying too much about different things: 0 = Not at all Trouble relaxin = Not at all Being so restless that it is hard to sit still: 0 = Not at all Becoming easily annoyed or irritable: 0 = Not at all Feeling afraid as if something awful might happen: 0 = Not at all Total YOSEF-7 score (0-4 normal; 5-9 mild; 10-14 moderate; 15-21 severe): 0 Source: Developed by Drs. Darrell Harry, Shira Vicente, Jersey Tinajero and colleagues, with an educational carolina from [employer]. YOSEF-7 Assessment Billing YOSEF-7 Assessment Tool: YOSEF-7 Assessment 13223 Review of Systems Const Denies poor appetite and Denies weakness Eyes Denies no additional complaints ENT Reports Normal hearing present, Denies dizziness, Denies nasal congestion, Denies tinnitus and Denies sore throat Card Denies chest pain, Denies syncope, Denies rapid heart rate and Denies dyspnea Resp Denies cough and Denies dyspnea GI Denies change in stool character, Reports constipation, Denies diarrhea, Denies nausea and Denies vomiting Denies dysuria and Denies urinary frequency Neuro Reports Normal hearing present, Denies confusion, Denies dizziness, Denies syncope and Denies weakness Psych Denies confusion Physical exam (Primary Care) Vital Signs: Last Vital Signs Pulse 73 07/26/24 10:35 BP 128/80 07/26/24 11:37 Pulse Ox 98 07/26/24 10:35 Oxygen Delivery Method Room Air 07/26/24 10:35 Care Plan Goal for BP management: L impacted cerumen, whitish disqumation ionterdigital area bilateral rectal exam guaiac negativce , mild prostate enlargement BMI result Body Mass Index 30.8 Tobacco/Smoking Status: Tobacco use Status Tobacco use date assessed 07/26/24 07/26/24 10:37 Patient Tobacco Use Status Former Tobacco user 07/26/24 11:48 Tobacco use type Cigarette 07/26/24 11:48 e-Cigarette/Vaping Use Never Used 07/26/24 11:48 PHQ-9: PHQ-9 Score PHQ-9: Total score 0 07/26/24 12:19 Depression Screening Interpretation: Negative Thrive Assessment: Date of Thrive Assessment Date Thrive assessed 07/26/24 07/26/24 10:37 Currently or been in a relationship where the following occur: No concerns reported Const General: No confusion Orientation/consciousness: No confusion HENMN Head: Yes normocephalic Ears: external ears normal Face and sinus: Yes normal facial exam Mouth: moist mucous membranes Throat: Yes tonsils normal Eyes Conjunctivae: conjunctivae normal Pupils: Equal, round and reactive pupils present and Pupil accommodation reflex normal Direct Ophthalmoscopy: normal light reflex Neck Neck: No lymphadenopathy Thyroid: Thyroid normal Chest Chest palpation & inspection: normal inspection of the chest Resp Effort & Inspection: normal respiratory effort and no audible wheezes Auscultation: clear to auscultation bilaterally, no crackles, no wheezes and lung sounds not diminished Cardio Rate: regular rate Rhythm: regular rhythm Peripheral pulses: radial pulses present and dorsalis pedis present GI Palpation (GI): no masses Auscultation: normal bowel sounds and normoactive bowel sounds Male General Exam: Yes normal external exam Neuro General: No confusion Cranial nerves: Yes Equal, round and reactive pupils present and Yes Normal hearing present Cognition (Neuro): normal cognition Gait exam (Neuro): Normal gait present Motor exam (neuro): 5/5 motor strength present throughout Deep tendon reflexes (DTR's): Right brachioradialis reflex intensity grade: 2+, Left brachioradialis reflex intensity grade: 2+, Right patellar reflex intensity grade: 2+ and Left patellar reflex intensity grade: 2+ Extrem General: No edema Office Procedures Flu Questionnaire Does the patient have a severe egg allergy?: No Does the patient have severe life threatening allergies?: No Does the patient have a fever or illness today?: No Has the patient ever had Guillain-[place] Syndrome?: No Has the patient ever had any past reaction to a flu shot?: No Immunizations Fluarix Triv 4890-0603 (PF) 45 mcg (15 mcg x 3)/0.5 mL IM syringe Performing Provider: Nitin Taylor MD Performing Location: [facility] [place] [facility] Administered by: Lu Ervin CMA on 07/26/24 12:19 Dose Route Admin Location Dispensed Lot Number Expiration Date NDC Appliance Service Technician 0.5 mL IM Left Deltoid 0.5 mL [id number] 11/26/24 [id number] sezmi VIS Given Date VIS Provided VIS Publication Date 07/26/24 Single Vaccine 21 Eligibility Eligibility Date Funding Source Not VFC Eligible 07/26/24 Private Coding Level of Care Code Est Pt Prev Care 40-64y(29870) Diagnoses Annual physical exam Z00.00 Colon cancer screening Z12.11 Impaired fasting blood sugar R73.01 Hepatic steatosis K76.0 Obesity (BMI 30-39.9) E66.9 Left foot pain M79.672 Hepatitis C antibody positive in blood R76.8 Alcohol abuse F10.10 GERD (gastroesophageal reflux disease) K21.9 Tinea pedis B35.3 Ankle pain, left M25.572 Varicose veins of ankle I83.90 Additional Codes YOSEF-7 Assessment Billing - YOSEF-7 Assessment Tool: YOSEF-7 Assessment 09222 ([id number]) PHQ-9 - 34563 - PHQ-9 Billing: Yes ([id number]) Assessment & Plan Assessment & Plan (1) Annual physical exam: Code(s): Z00.00 - Encounter for general adult medical examination without abnormal findings Category: Medical Plan: Patient is advised to eat healthy, keep well hydrated, keep active and have adequate sleep. (2) Colon cancer screening: Code(s): Z12.11 - Encounter for screening for malignant neoplasm of colon Category: Medical Plan: Patient is reminded about colonoscopy (3) Impaired fasting blood sugar: Code(s): R73.01 - Impaired fasting glucose Category: Medical Plan: Decrease the amount of carbohydrate intake, pasta, bread, rice and potatoes are all sugar and that is aside from all the sweet stuff, remember that fruits are good but they are Sweet also. (4) Hepatic steatosis: Code(s): K76.0 - Fatty (change of) liver, not elsewhere classified Category: Medical Plan: Low-fat diet and exercise (5) Obesity (BMI 30-39.9): Code(s): E66.9 - Obesity, unspecified Category: Medical Plan: Diet and exercise (6) Left foot pain: Code(s): M79.672 - Pain in left foot Category: Medical (7) Hepatitis C antibody positive in blood: Code(s): R76.8 - Other specified abnormal immunological findings in serum Category: Medical (8) Alcohol abuse: Code(s): F10.10 - Alcohol abuse, uncomplicated Category: Social Hx (9) GERD (gastroesophageal reflux disease): Code(s): K21.9 - Gastro-esophageal reflux disease without esophagitis Category: Medical (10) Tinea pedis: Code(s): B35.3 - Tinea pedis Category: Medical (11) Ankle pain, left: Code(s): M25.572 - Pain in left ankle and joints of left foot Category: Medical (12) Varicose veins of ankle: Code(s): I83.90 - Asymptomatic varicose veins of unspecified lower extremity Category: Medical Plan History of Present Illness Health Maintenance - Colonoscopy referral due to delay in previous completion. - Blood work for comprehensive evaluation including glucose, liver function, and prostate-specific antigen. - Encouraged adherence to low-fat diet and regular exercise for weight management and hepatic health. - Discussion about reducing daily alcohol intake to improve liver status. - Encouraged hydration and awareness of orthostatic dizziness risk with positional changes. - Discussed appropriate dietary modifications for gastroesophageal reflux management. - Recommended antifungal foot cream and powder for fungal infection between toes. - Referred to vascular surgery for varicose veins. Social History - Daily alcohol consumption noted; advised reduction for health reasons. - Inactive lifestyle reported, limited to walking for activity; no structured exercise routine followed. - Obesity observed; advice on dietary modifications provided. - As a former smoker, no current tobacco use was noted. - Family history includes maternal diabetes and paternal heart disease. Review of Systems - General: Reports nausea and prior vomiting; reports episodic dizziness. - Musculoskeletal: Reports chronic pain in left foot and ankle extending to shoulder and back post-fall. - Gastrointestinal: Reports heartburn managed with omeprazole; denies difficulty swallowing - Respiratory: Reports occasional cough, nasal congestion, and waking with congestion. - Neurological: Reports dizziness with positional changes. - Dermatological: Reports occasional rash in buttocks area. - Genitourinary: Wakes multiple times at night for urination. Physical Exam General: Cooperative, healthy appearing, comfortable, no acute distress and well developed Orientation: Patient oriented x3 Limitations: No limitations Head: Normal to inspection Ears: Hearing grossly normal bilaterally Nose: Congested, wakes up with nose congested Face and sinus: Normal facial exam Eyes: Appearance normal, both eyes and all related structures Neck: Normal visual inspection and Yes full ROM Respiratory: Normal respiratory effort and able to speak in complete sentences. Clear to auscultation bilaterally Cardiovascular: Regular rate and rhythm. Normal S1 and S2 GI: Normal to inspection. Soft to palpation and nontender Skin: No rashes or lesions noted, except for rash on buttocks Neuro: Patient oriented x3 Extremities: Painful left foot and ankle, varicose veins noted, fungal infection on foot Results - Labs: Previously normal basic metabolic panel, normal blood count with mild leukopenia, elevated liver function tests including high AST and ALT levels. - Diagnostics: Past normal foot x-ray. Referral for new imaging initiated for chronic pain evaluation. Plan Continued monitoring of the patient's blood pressure and glucose levels is advised, including addressing hypertension and imperfect glucose tolerance. A new x-ray and vascular referral are necessary to evaluate persistent foot and ankle pain and varicose veins. Lifestyle changes, such as a low-fat diet and increased physical activity, should be encouraged to manage obesity and hepatic steatosis. The cessation of alcohol is important for liver health improvement. A colonoscopy should be completed as scheduled, following prior delays. Omeprazole for GERD management continues, supplemented by dietary changes to prevent symptoms. Appropriate labs and health maintenance tests, including prostate evaluation, will be conducted to ensure comprehensive care. Patient was informed and verbally consented to the use of an ambient scribe for clinic note documentation during this visit. Discussion Notes I discussed several management strategies with the patient, explicitly emphasizing the importance of addressing his liver health through significant reduction of alcohol consumption. We also discussed potential risks and recommended follow-ups with a clinical technician for both liver function evaluation and hepatitis C antibody status. I informed the patient about the necessity of colonoscopy due to previously missed appointments. About lifestyle, emphasis was made on dietary changes and increased exercise to counter obesity and manage reflux symptoms. The patient was advised on hydration strategies to prevent dizziness and recommendations were given for a vascular surgery referral for varicose veins assessment. Furthermore, the need for a new ankle and foot x-ray was discussed due to ongoing pain. He agreed to follow these recommendations, understanding the importance of preventive care measures for long-term health improvement. Patient Instructions - Please schedule a colonoscopy as soon as possible. - Reduce daily alcohol intake significantly to improve liver health. - Follow a low-fat diet and increase physical activity as advised. - Ensure adequate hydration to prevent dizziness upon standing. - Continue taking omeprazole for GERD as prescribed. - Use the prescribed antifungal cream and powder as directed. - Schedule and complete all recommended lab tests including those for liver function and glucose. - Follow up with a clinical technician as discussed. - Monitor and report any changes in symptoms to me directly. Orders: Orders Thyroid Stimulating Hormone Today K76.0 - Fatty (change of) liver, not elsewhere classified Hemoglobin A1c Today R73.01 - Impaired fasting glucose Free T4 (Free Thyroxine) Today R73.01 - Impaired fasting glucose Comprehensive Met. Panel Today R73.01 - Impaired fasting glucose Complete Blood Count Auto Diff Today K76.0 - Fatty (change of) liver, not elsewhere classified Lipid Panel Today E78.00 - Pure hypercholesterolemia, unspecified, K76.0 - Fatty (change of) liver, not elsewhere classified Vitamin B12 and Folate Today K76.0 - Fatty (change of) liver, not elsewhere classified Prostate Specific Antigen Scr Today K76.0 - Fatty (change of) liver, not elsewhere classified XR foot LT min 3V Today M79.672 - Pain in left foot Influenza [id number] Immunization Today Z23 - Encounter for immunization Referrals Vascular Surgery Referral I83.90 - Asymptomatic varicose veins of unspecified lower extremity Gastroenterology Referral K21.9 - Gastro-esophageal reflux disease without esophagitis, R76.8 - Other specified abnormal immunological findings in serum, Z12.11 - Encounter for screening for malignant neoplasm of colon Medications: New clotrimazole 1% 1 appl topical BID 45 grams 1RF 4 weeks B35.3 - Tinea pedis miconazole nitrate 2% (Zeasorb AF) 1 appl topical BID 85 grams 0RF B35.3 - Tinea pedis
[2024-07-26 11:37] VITALS: BP 128/80
--- OUTSIDE RECORDS SUMMARY | 2024-07-26 12:03 | XMS_ITS | Clinical Summary ---
Author Organization [facility] Address [address] [place] [address] Phone Care Team Providers Care Thread Spinner Name Role Phone Nitin Taylor MD Primary Care Provider [phone] Allergies No known active allergies Medications ibuprofen (ADVIL,MOTRIN) 600 mg tablet Take 1 tablet (600 mg total) by mouth every 6 (six) hours for 10 days. 30 tablet 2024 Encounters Date Type Department Care Team Description 2024 9:00 AM EST - 2024 11:42 AM EST Emergency [facility] Emergency [address] [place] [id number] Nella Skinner DO COVID (Primary Dx) Discharge Disposition: Home or Self Care from Last 3 Months Medical History Medical History Date Comments Over weight 12/14/2021 DX:Over weight Hypertension 12/14/2021 DX:Hypertension Elevated blood pressure reading 12/14/2021 DX:Elevated blood pressure reading Social History Tobacco Use Types Packs/Day Years Used Date Smoking Tobacco: Never Smokeless Tobacco: Never Alcohol Use Standard Drinks/Week Comments Yes 4 (1 standard drink = 0.6 oz pur e alcohol) Sex and Gender Information Value Date Recorded Sex Assigned at Male 2024 10:02 AM EST Legal Sex Male 3:09 PM EST Gender Identity Male 2024 10:02 AM EST Sexual Orientation Straight 2024 10 :02 AM EST Obstetrics History Last Filed Vital Signs Vital Sign Reading Time Taken Comments Blood Pressure 133/89 2024 9:20 AM EST Pulse 82 2024 9:20 AM EST Temperature 36.4 ??C (97.6 ??F) 2024 8:37 AM ES T Respiratory Rate 17 2024 9:20 AM EST Oxygen Saturation 96% 2024 9:20 AM EST Inhaled Oxygen Concentration - - Weight 87 kg (191 lb 11.2 oz) 2024 8:37 AM EST Height 167.6 cm (5' 6 ) 2024 8:37 AM EST Body Mass Index 30.94 2024 8:37 AM EST Plan of Treatment Health Maintenance Due Date Last Done Comments Hepatitis B Vaccines (1 of 3 - 19+ 3-dose series) 1991 Cholesterol Screening (Lipid Panel) 04/28/2022 Colorectal Cancer Screening: Colonoscopy 04/28/2022 Depression Screening 04/28/2022 HIV Screening 04/28/2022 Hepatitis C Screening 04/28/2022 Social Influencers of Health Screening 04/28/2022 Pneumococcal Vaccine: 50+ Ye ars (1 of 1 - PCV) 2022 Zoster Vaccines (1 of 2) 2022 COVID-19 Vaccine ( - 2023-2 5 season) 2024 Influenza Vaccine (#1) 2024 DTaP,Tdap,and Td Vaccines (2 - Td or Tdap) 12/24/2024 12/24/2014 Hypertension/CHF/CAD Annual BMP Blood Test 2025 2024 HIB Vaccines Aged Out No longer eligi ble based on patient's age to complete this topic HPV Vaccines Aged Out No longer eligi ble based on patient's age to complete this topic Hepatitis A Vaccines Aged Out No long er eligible based on patient's age to complete this topic IPV Vaccines Aged Out No longer eligi ble based on patient's age to complete this topic MMR Vaccines Aged Out No longer eligi ble based on patient's age to complete this topic Meningococcal ACWY Vaccine Aged Out N o longer eligible based on patient's age to complete this topic Meningococcal B Vacine Aged Out No lo nger eligible based on patient's age to complete this topic Pneumococcal Vaccine: Pediat rics (0 to 5 Years) and At-Risk Patients (6 to 64 Years) Aged Out No longer eligi ble based on patient's age to complete this topic RSV Immunization Patients Un sukhwinder 20 months Aged Out No longer eligible b ased on patient's age to complete this topic Varicella Vaccines Aged Out No longer eligible based on patient's age to complete this topic Procedures Procedure Name Priority Date/Time Associated Diagnosis Comments ECG 12-LEAD STAT 2024 9:19 AM EST TROPONIN I HIGH SENSITIVITY STAT 2024 9:04 AM EST COMPREHENSIVE METABOLIC PANEL STAT 2024 9:04 AM EST COMPLETE BLOOD COUNT STAT 2024 9:04 AM EST B-TYPE NATRIURETIC PEPTIDE STAT 2024 9:04 AM EST XR CHEST 2 VIEWS STAT 2024 8:51 AM EST RESPIRATORY VIRUS PANEL MOLECULAR STUDY STAT 2024 8:42 AM EST ECG ANNOTATED 2024 from Last 3 Months Results * ECG 12 lead (2024 9:19 AM EST) Ventricular Rate ECG 78 BPM GEMUSE Atrial Rate 78 BPM GEMUSE P-R Interval 146 ms GEMUSE QRS Duration 86 ms GEMUSE Q-T Interval 344 ms GEMUSE QTc 392 ms GEMUSE P Wave [place] 65 degrees GEMUSE R [place] -16 degrees GEMUSE T [place] 26 degrees GEMUSE ECG Interpretation Normal sinus rhythm Normal ECG When compared with ECG of 31-MAR-2017 22:26, No significant change was found Confirmed by Camille ROSENTHAL JAMES ([id number]) on 06/18/2024 6:50:28 AM GEMUSE 2024 9:19 AM EST 06/18/2024 6:50 AM EST Nella Skinner DO ECG ORDERABLES Final Res ult Performing Organization Address City/[facility]/ZIP Co de Phone Number GEMUSE * Troponin I high sensitivity (2024 9:04 AM EST) [facility] High Sensitivity Troponin I 4 <=79 ng/L LAB CHEMISTRY METHOD 2024 10:11 AM EST [facility] Blood Venous blood specimen / Unknown Venipuncture / Unknown 2024 9:04 AM EST 2024 9:[address] [facility] - 2024 10:11 AM EST High levels of biotin in samples may falsely decrease hsTroponin values. ??Use caution when interpreting hsTroponin results in patients taking biotin who exhibit renal impairment (eGFR <60) or in patients taking more than 20 mg/day of biotin. Nella Sonu Aurelio Skinner DO LAB BLOOD ORDERABLES Keshia l Result Performing Organization Address [facility]/ZIP Co de Phone Number [facility] [address] [place] [address], [place] [phone] * (ABNORMAL) CBC (2024 9:04 AM EST) [facility] WBC 4.6(L) 4.8 - 10.8 K/mcL LAB HEMETOLOGY METHOD 2024 9:45 AM [facility] RBC 5.30 4.50 - 5.50 M/mcL LAB HEMETOLOGY METHOD 2024 9:45 AM [facility] Hemoglobin 14.1 13.5 - 17.5 g/dL LAB HEMETOLOGY METHOD 2024 9:45 AM [facility] Hematocrit 44.0 42.0 - 54.0 % LAB HEMETOLOGY METHOD 2024 9:45 AM [facility] MCV 83.0 79.0 - 98.0 FL LAB HEMETOLOGY METHOD 2024 9:45 AM EST [facility] MCH 26.6(L) 27.0 - 32.0 pcg LAB HEMETOLOGY METHOD 2024 9:45 AM [facility] MCHC 32.0 32.0 - 37.0 g/dL LAB HEMETOLOGY METHOD 2024 9:45 AM EST [facility] RDW 14.9 11.0 - 15.0 % LAB HEMETOLOGY METHOD 2024 9:45 AM EST [facility] Platelets 194 130 - 400 K/mcL LAB HEMETOLOGY METHOD 2024 9:45 AM [facility] MPV 10.3 7.0 - 11.0 FL LAB HEMETOLOGY METHOD 2024 9:45 AM EST [facility] NRBC 0.0 <1.0 % LAB HEMETOLOGY METHOD 2024 9:45 AM [facility] NRBC Absolute 0.00 <0.10 K/mcL LAB HEMETOLOGY METHOD 2024 9:45 AM [facility] Blood Venous blood specimen / Unknown Venipuncture / Unknown 2024 9:04 AM EST 2024 9:40 AM EST us Nella Skinner DO LAB BLOOD ORDERABLES Keshia l Result [facility] [address] [place] [address], * BNP (2024 9:04 AM EST) BNP 5 <=100 pcg/mL LAB CHEMISTRY METHOD 2024 10:54 AM EST [facility] Blood Venous blood specimen / Unknown Venipuncture / Unknown 2024 9:04 AM EST 2024 9:40 AM EST Nella Skinner DO LAB BLOOD ORDERABLES Keshia l Result [facility] [address] [place] [address], [place] [phone] * (ABNORMAL) Comprehensive metabolic panel (2024 9:04 AM EST) Sodium 137 133 - 145 mmol/L LAB CHEMISTRY METHOD 2024 10:11 AM [facility] Potassium 4.0 3.5 - 5.5 mmol/L LAB CHEMISTRY METHOD 2024 10:11 AM [facility] Chloride 105 96 - 110 mmol/L LAB CHEMISTRY METHOD 2024 10:11 AM [facility] CO2 25 21 - 32 mmol/L LAB CHEMISTRY METHOD 2024 10:11 AM [facility] Anion Gap 7 3 - 11 LAB CHEMISTRY METHOD 2024 10:11 AM [facility] Glucose 85 70 - 100 mg/dL LAB CHEMISTRY METHOD 2024 10:11 AM [facility] BUN 9 5 - 25 mg/dL LAB CHEMISTRY METHOD 2024 10:11 AM [facility] Creatinine 1.04 0.70 - 1.30 mg/dL LAB CHEMISTRY METHOD 2024 10:11 AM [facility] eGFR 86 >=60 mL/min/1. 73m2 LAB CHEMISTRY METHOD 2024 10:11 AM [facility] Comment:Calculation based on the??Chronic Kidney Disease Epidemiology Collaboration (CKD-EPI) equation refit??without adjustment for race. BUN/Creatinine Ratio 8.7 LAB CHEMISTRY METHOD 2024 10:11 AM [facility] Calcium 8.6 8.5 - 10.5 mg/dL LAB CHEMISTRY METHOD 2024 10:11 AM [facility] AST (SGOT) 73(H) 10 - 42 unit/L LAB CHEMISTRY METHOD 2024 10:11 AM [facility] ALT (SGPT) 57 10 - 60 unit/L LAB CHEMISTRY METHOD 2024 10:11 AM [facility] Alkaline Phosphatase 135(H) 42 - 121 unit/L LAB CHEMISTRY METHOD 2024 10:11 AM [facility] Total Protein 7.3 6.0 - 8.0 g/dL LAB CHEMISTRY METHOD 2024 10:11 AM [facility] Albumin 3.9 3.2 - 5.0 g/dL LAB CHEMISTRY METHOD 2024 10:11 AM [facility] Total Bilirubin 0.6 0.0 - 1.4 mg/dL LAB CHEMISTRY METHOD 2024 10:11 AM [facility] Blood Venous blood specimen / Unknown Venipuncture / Unknown 2024 9:04 AM EST 2024 9:40 AM EST us Nella Skinner DO LAB BLOOD ORDERABLES Keshia l Result [facility] [address] [place] [address], [place] [phone] * XR Chest 2 Views (2024 8:51 AM EST) Anatomical Region Laterality Modality Body Radiographic Sydnie ging 2024 9:26 AM EST Impressions 2024 9:37 AM EST No acute cardiopulmonary process seen. No change from previous exam 2020. -------- FINAL REPORT -------- Dictated By: Raji Anderson Dictated Date: 2024 09:26 ET Assigned Physician: Raji Anderson Reviewed and Electronically Signed By: Raji Anderson Signed Date: 2024 09:37 ET Workstation ID: [id number] Transcribed By: Self Edit Transcribed Date: 2024 09:26 ET Narrative 2024 9:37 AM EST Examination: None chest 2 views. CLINICAL INDICATION: SOB, congestion and cough. COMPARISON: Chest portable 2020. FINDINGS: The lungs are well-expanded and clear. The heart size and pulmonary vascularity is normal. No gross bony abnormality seen. Procedure Note Raji Anderson MD - 2024 Examination: None chest 2 views. CLINICAL INDICATION: SOB, congestion and cough. COMPARISON: Chest portable 2020. FINDINGS: The lungs are well-expanded and clear. The heart size andpulmonary vascularity is normal. No gross bony abnormality seen. IMPRESSION: No acute cardiopulmonary process seen. No change from previous exam2020. -------- FINAL REPORT -------- Dictated By: Raji Anderson Dictated Date: 2024 09:26 ET Assigned Physician: Raji Anderson Reviewed and Electronically Signed By: Raji Anderson Signed Date: 2024 09:37 ET Workstation ID: [id number] Transcribed By: Self Edit Transcribed Date: 2024 09:26 ET Nella Skinner DO IMG XR PROCEDURES Final R esult * (ABNORMAL) Respiratory virus panel molecular study (2024 8:42 AM EST) Adenovirus Detection by PCR Not Detected Not Detected LAB MICROBIOLOGY METHOD 2024 9:45 AM EST [facility] Influenza A PCR Not Detected Not Detected LAB MICROBIOLOGY METHOD 2024 9:45 AM EST [facility] Influenza B PCR Not Detected Not Detected LAB MICROBIOLOGY METHOD 2024 9:45 AM EST [facility] Coronavirus 229E Not Detected Not Detected LAB MICROBIOLOGY METHOD 2024 9:45 AM EST [facility] Coronavirus HKU1 Not Detected Not Detected LAB MICROBIOLOGY METHOD 2024 9:45 AM [facility] Coronavirus OC43 Not Detected Not Detected LAB MICROBIOLOGY METHOD 2024 9:45 AM EST [facility] Coronavirus NL63 Not Detected Not Detected LAB MICROBIOLOGY METHOD 2024 9:45 AM EST [facility] Parainfluenza Virus 1 Not Detected Not Detected LAB MICROBIOLOGY METHOD 2024 9:45 AM [facility] Parainfluenza Virus 2 Not Detected Not Detected LAB MICROBIOLOGY METHOD 2024 9:45 AM [facility] Parainfluenza Virus 3 Not Detected Not Detected LAB MICROBIOLOGY METHOD 2024 9:45 AM EST [facility] Parainfluenza Virus 4 Not Detected Not Detected LAB MICROBIOLOGY METHOD 2024 9:45 AM [facility] RSV PCR Not Detected Not Detected LAB MICROBIOLOGY METHOD 2024 9:45 AM [facility] Human Metapneumovirus A and B Not Detected Not Detected LAB MICROBIOLOGY METHOD 2024 9:45 AM [facility] Rhinovirus/Entero virus Not Detected Not Detected LAB MICROBIOLOGY METHOD 2024 9:45 AM [facility] Bordetella pertussis Not Detected Not Detected LAB MICROBIOLOGY METHOD 2024 9:45 AM EST [facility] Bordetella parapertussis Not Detected Not Detected LAB MICROBIOLOGY METHOD 2024 9:45 AM [facility] Mycoplasma pneumo by PCR Not Detected Not Detected LAB MICROBIOLOGY METHOD 2024 9:45 AM EST [facility] Chlamydia pneumoniae Not Detected Not Detected LAB MICROBIOLOGY METHOD 2024 9:45 AM EST [facility] SARS COV-2 Detected(A ) Not Detected LAB MICROBIOLOGY METHOD 2024 9:45 AM EST [facility] Swab Both anterior nares / Unknown Non-blood Collection / Unknown 2024 8:42 AM EST 2024 8:48 AM EST Narrative [facility] - 2024 9:45 AM EST Testing was performed using the [employer] Respiratory Pathogen PCR Assay. All results must be correlated with the clinical findings. Results should not be used as the sole basis for diagnosis. False Negative results may occur from the presence of sequence variants in the region targeted by the assay or the presence of inhibitors. Results may be affected by concurrent antiviral/antimicrobial therapy or levels of organisms that are below the limit of detection. Nella Skinner DO LAB MICROBIOLOGY - GENERA L ORDERABLES Final Result [facility] [address] [place] [address], * ECG-Annotated (2024) us Provider Onbase MD ECG ORDERABLES Final Result from Last 3 Months Care Teams Thread Spinner Relationship Specialty Start Date End Date Nitin Taylor MD [address] [place] [address] [address] [facility] [place] [address] PCP - General Internal Medicine 03/16/21
== END 2024-07-26 12:24 | disposition home or self-care (01) ==
PROVIDERS: PCP Internal Medicine; Visit Provider Internal Medicine
DX: Z00.00 Encounter for general adult medical examination without abnormal findings (principal); Z12.11 Encounter for screening for malignant neoplasm of colon; R73.01 Impaired fasting glucose; K76.0 Fatty (change of) liver, not elsewhere classified; E66.9 Obesity, unspecified; Z68.30 Body mass index [BMI] 30.0-30.9, adult; M79.672 Pain in left foot; F10.10 Alcohol abuse, uncomplicated; K21.9 Gastro-esophageal reflux disease without esophagitis; B35.3 Tinea pedis; M25.572 Pain in left ankle and joints of left foot; Z23 Encounter for immunization

== ENCOUNTER → 2024-07-26 10:22 | Outpatient (BNVA) | payer OTHER, SELFPAY | PROVIDERS: PCP Internal Medicine; Visit Provider Internal Medicine | DX: Z00.00 Encounter for general adult medical examination without abnormal findings (principal); Z23 Encounter for immunization; R73.01 Impaired fasting glucose; K76.0 Fatty (change of) liver, not elsewhere classified; E66.9 Obesity, unspecified; M79.672 Pain in left foot; R76.8 Other specified abnormal immunological findings in serum; F10.10 Alcohol abuse, uncomplicated; K21.9 Gastro-esophageal reflux disease without esophagitis; B35.3 Tinea pedis; M25.572 Pain in left ankle and joints of left foot; I83.90 Asymptomatic varicose veins of unspecified lower extremity | CPT/HCPCS: 90471; 90656; 96127; 99396 ==

== ENCOUNTER 2024-08-07 07:32 | Outpatient (REF) | payer OTHER, SELFPAY ==
--- NOTE | ~2024-08-07 | XR_ITS ---
EXAMINATION: XR FOOT 3 OR MORE VIEWS LEFT HISTORY: M79.672 - Pain in left foot COMPARISON: There are no prior studies available for comparison. FINDINGS: Three views of the left foot are submitted. Osseous mineralization is normal. There is no fracture or dislocation. There is osteoarthritis of the intertarsal joints. There are vascular calcifications. XR/XR foot LT min 3V IMPRESSION: Osteoarthritis of the intertarsal joints. Electronically signed by: Darrell Rodriguez MD 08/07/2024 01:10 PM EDT
--- OUTSIDE RECORDS SUMMARY | 2024-08-07 07:35 | XMS_ITS | Clinical Summary ---
Author Organization [facility] Address [address] [place] [address] Care Team Providers Care Utilization Management Nurse Name Role Phone Keyanna Merino HOLLIS Primary Care Provider [phone] Source Comments PLEASE NOTE, if this patient is a minor, it may be UNLAWFUL to discuss sensitive information that is contained in these records (such as FAMILY PLANNING, MENTAL HEALTH or SUBSTANCE ABUSE) with the minor patient's parent or other person without the patient's specific authorization.[facility] Allergies No known active allergies Medications FLUoxetine (PROZAC) 20 mg capsule 2 6 Active loratadine (CLARITIN) 10 mg tabletIndication s:Seasonal allergic reaction Take 1 Tab by mouth once daily as needed for allergies. 30 Tab 1 6 Active carbamide (DEBROX) 6.5 % otic solutionIndicati ons:Bilateral impacted cerumen Place 10 Drops into both ears 2 (two) times daily. Use for up to 4 days. 15 mL 1 6 Active sildenafil (VIAGRA) 25 mg tabletIndication s:Other male erectile dysfunction Take 1 Tab by mouth once daily as needed for erectile dysfunction. 20 Tab 0 6 Active ofloxacin (FLOXIN) 0.3 % otic solutionIndicati ons:Otitis externa of both ears, unspecified chronicity, unspecified type,Tympanic membrane perforation, bilateral Place 5 Drops into both ears 2 (two) times daily. 10 mL 0 6 Active omeprazole (PRILOSEC) [address] capsuleIndicatio ns:Dyspepsia SERA 1 CAPSULA POR BOCA DIARA ANTES DE DESAYUNAR. TAKE 1 CAPSULE BY MOUTH DAILY BEFORE BREAKFAST 30 Cap 3 7 Active Active Problems Problem Noted Date Diagnosed Date Arthritis of knee, right 03/14/2017 Overview (03/14/2017): X ray done 03/04/[address] [facility] - Mild Degenerative changes Heroin abuse ([facility]) 11/12/2016 Overview (11/12/2016): Seen in ER [facility] c/o Heroin overdose - admits snorting 4 bags - uses daily History of positive PPD 11/19/2015 History of recreational drug use 09/17/2015 Overview (09/17/2015): Last used 1 year ago Former cigarette smoker of unknown amount 2015 Anxiety 09/17/2015 Immunizations Name Administration Dates Next Due Hep B, Adult/Adol (ENERGIX/RECOMBIVAX) 6 TDAP 11/19/2015 Family History Relation Name Status Comments Father Alive Mother Alive Social History Tobacco Use Types Packs/Day Years Used Date Smoking Tobacco: Former Comments:Quit - 1 year ago Alcohol Use Standard Drinks/Week Comments No 0 (1 standard drink = 0.6 oz pur e alcohol) Social Connections Answer Date Recorded Social Connections and Isolation 0 01/21/2019 Financial Resource Strain Answer Date R ecorded Financial Resource Strain 0 2018 Stress Answer Date Recorded Stress 0 01/21/2019 Physical Activity Answer Date Recorded Physical Activity 0 01/21/2019 Food Insecurity Answer Date Recorded Food 0 01/21/2019 Transportation Needs Answer Date Record ed Transportation 0 01/21/2019 Housing Stability Answer Date Recorded Housing 0 01/21/2019 Safety and Environment Answer Date Rodrick rded Safety 0 01/21/2019 Utilities Answer Date Recorded Utilities 0 01/21/2019 Employment Answer Date Recorded Employment 0 01/21/2019 Sex and Gender Information Value Date Recorded Sex Assigned at Not on file Legal Sex Male 5:32 AM PST Gender Identity Not on file Sexual Orientation Not on file Last Filed Vital Signs Vital Sign Reading Time Taken Comments Blood Pressure 102/76 02/11/2016 4:09 PM EDT Pulse 68 02/11/2016 4:09 PM EDT Temperature 36.7 ??C (98.1 ??F) 02/11/2016 4:09 PM ED T Respiratory Rate 17 02/11/2016 4:09 PM EDT Oxygen Saturation 96% 12/23/2015 11:51 AM EDT RA Inhaled Oxygen Concentration - - Weight 89.4 kg (197 lb) 02/11/2016 4:09 PM EDT Height 167.6 cm (5' 6 ) 10/01/2015 9:16 AM EDT Body Mass Index 31.8 10/01/2015 9:16 AM EDT Plan of Treatment Not on file Insurance [facility] Member Subscriber Plan / Payer (Ef fective 2015-Present) Name:McwilliamsKeyur Yanezto Relation to Subscriber:Self Name:Mcwilliams Lai Payer ID:[id number] Group ID:[id number] Type:Medicaid Address: [facility] [address] [place] [address] Care Teams Utilization Management Nurse Relationship Specialty Start Date End Date Keyanna Merino FNP [address] [place] [address] PCP - General Family Medicine, LEAD TELLER 08/07/15
--- OUTSIDE RECORDS SUMMARY | 2024-08-07 07:35 | XMS_ITS | Clinical Summary ---
Author Organization [facility] Address [address] [place] [address] Phone Care Team Providers Care Folder Taper Operator Name Role Phone Nitin Taylor MD Primary Care Provider [phone] Allergies No known active allergies Encounters Date Type Department Care Team Description 2024 9:00 AM EST - 2024 11:42 AM EST Emergency [facility] Emergency [address] [place] [id number] Nella Skinner DO COVID (Primary Dx) Discharge [...] Vaccines (1 of 2) 2022 COVID-19 Vaccine (1 - 2023-2 5 season) 2024 Influenza Vaccine [...] ECG 12 lead (2024 9:19 AM EST) Pathologist [facility] Ventricular Rate ECG 78 BPM GEMUSE Atrial Rate 78 BPM GEMUSE P-R Interval 146 ms GEMUSE QRS Duration 86 ms GEMUSE Q-T Interval 344 ms GEMUSE QTc 392 ms GEMUSE P Wave [place] 65 degrees GEMUSE R [place] -16 degrees GEMUSE T [place] 26 degrees GEMUSE ECG Interpretation Normal sinus rhythm Normal ECG When compared with ECG of 31-MAR-2017 22:26, No significant change was found Confirmed by Camille ROSENTHAL JAMES ([id number]) on 06/18/2024 6:50:28 AM GEMUSE 2024 9:19 AM EST 06/18/2024 6:50 AM EST us Nella Carey Brody DO ECG ORDERABLES Final Res ult GEMUSE * Troponin I high sensitivity (2024 9:04 AM EST) [facility] High Sensitivity Troponin I 4 <=79 ng/L LAB CHEMISTRY METHOD 2024 10:11 AM [facility] Blood Venous blood specimen / Unknown Venipuncture / Unknown 2024 9:04 AM EST 2024 9:40 AM EST [facility] - 2024 10:11 AM EST High levels of biotin in samples may falsely decrease hsTroponin values. ??Use caution when interpreting hsTroponin results in patients taking biotin who exhibit renal impairment (eGFR <60) or in patients taking more than 20 mg/day of biotin. Nella Skinner DO LAB BLOOD ORDERABLES Keshia l Result [facility] [address] [place] [address], * (ABNORMAL) CBC (2024 9:04 AM EST) [facility] WBC 4.6(L) 4.8 - 10.8 K/mcL LAB HEMETOLOGY METHOD 2024 9:45 AM [facility] RBC 5.30 4.50 - 5.50 M/mcL LAB HEMETOLOGY METHOD 2024 9:45 AM [facility] Hemoglobin 14.1 13.5 - 17.5 g/dL LAB HEMETOLOGY METHOD 2024 9:45 AM [facility] Hematocrit 44.0 42.0 - 54.0 % LAB HEMETOLOGY METHOD 2024 9:45 AM [facility] MCV 83.0 79.0 - 98.0 FL LAB HEMETOLOGY METHOD 2024 9:45 AM [facility] MCH 26.6(L) 27.0 - 32.0 pcg LAB HEMETOLOGY METHOD 2024 9:45 AM EST [facility] MCHC 32.0 32.0 - 37.0 g/dL LAB HEMETOLOGY METHOD 2024 9:45 AM EST [facility] RDW 14.9 11.0 - 15.0 % LAB HEMETOLOGY METHOD 2024 9:45 AM EST [facility] Platelets 194 130 - 400 K/mcL LAB HEMETOLOGY METHOD 2024 9:45 AM EST [facility] MPV 10.3 7.0 - 11.0 FL LAB HEMETOLOGY METHOD 2024 9:45 AM EST [facility] NRBC 0.0 <1.0 % LAB HEMETOLOGY METHOD 2024 9:45 AM EST [facility] NRBC Absolute 0.00 <0.10 K/mcL LAB HEMETOLOGY METHOD 2024 9:45 AM EST [facility] Blood Venous blood specimen / Unknown Venipuncture / Unknown 2024 9:04 AM EST 2024 9:40 AM EST us Nella Skinner DO LAB BLOOD ORDERABLES Keshia l Result [facility] [address] [place] [address], * BNP (2024 9:04 AM EST) BNP 5 <=100 pcg/mL LAB CHEMISTRY METHOD 2024 10:54 AM EST [facility] Blood Venous blood specimen / Unknown Venipuncture / Unknown 2024 9:04 AM EST 2024 9:40 AM EST us Nella Skinner DO LAB BLOOD ORDERABLES Keshia l Result [facility] [address] [place] [address], * (ABNORMAL) Comprehensive metabolic panel (2024 9:04 AM EST) Sodium 137 133 - 145 mmol/L LAB CHEMISTRY METHOD 2024 10:11 AM [facility] Potassium 4.0 3.5 - 5.5 mmol/L LAB CHEMISTRY METHOD 2024 10:11 AM [facility] Chloride 105 96 - 110 mmol/L LAB CHEMISTRY METHOD 2024 10:11 AM [facility] CO2 25 21 - 32 mmol/L LAB CHEMISTRY METHOD 2024 10:11 AM [facility] Anion Gap 7 3 - 11 LAB CHEMISTRY METHOD 2024 10:11 AM [facility] Glucose 85 70 - 100 mg/dL LAB CHEMISTRY METHOD 2024 10:11 AM [facility] BUN 9 5 - 25 mg/dL LAB CHEMISTRY METHOD 2024 10:11 AM [facility] Creatinine 1.04 0.70 - 1.30 mg/dL LAB CHEMISTRY METHOD 2024 10:11 AM [facility] eGFR 86 >=60 mL/min/1. 73m2 LAB CHEMISTRY METHOD 2024 10:11 AM [facility] Comment:Calculation based on the??Chronic Kidney Disease Epidemiology Collaboration (CKD-EPI) equation refit??without adjustment for race. BUN/Creatinine Ratio 8.7 LAB CHEMISTRY METHOD 2024 10:11 AM [facility] Calcium 8.6 8.5 - 10.5 mg/dL LAB CHEMISTRY METHOD 2024 10:11 AM [facility] AST (SGOT) 73(H) 10 - 42 unit/L LAB CHEMISTRY METHOD 2024 10:11 AM [facility] ALT (SGPT) 57 10 - 60 unit/L LAB CHEMISTRY METHOD 2024 10:11 AM [facility] Alkaline Phosphatase 135(H) 42 - 121 unit/L LAB CHEMISTRY METHOD 2024 10:11 AM [facility] Total Protein 7.3 6.0 - 8.0 g/dL LAB CHEMISTRY METHOD 2024 10:11 AM [facility] Albumin 3.9 3.2 - 5.0 g/dL LAB CHEMISTRY METHOD 2024 10:11 AM [facility] Total Bilirubin 0.6 0.0 - 1.4 mg/dL LAB CHEMISTRY METHOD 2024 10:11 AM [facility] Blood Venous blood specimen / Unknown Venipuncture / Unknown 2024 9:04 AM EST 2024 9:40 AM EST us Nella Skinner DO LAB BLOOD ORDERABLES Keshia l Result [facility] [address] [place] [address], [place] [phone] * XR Chest 2 Views (2024 8:51 [...] Signed Date: 2024 09:37 ET Workstation ID: [id number] Transcribed By: Self Edit Transcribed Date: 2024 [...] Signed Date: 2024 09:37 ET Workstation ID: [id number] Transcribed By: Self Edit Transcribed Date: 2024 09:26 ET Nella Skinner DO IMG XR PROCEDURES Final R esult * (ABNORMAL) Respiratory virus panel molecular study (2024 8:42 AM EST) Adenovirus Detection by PCR Not Detected Not Detected LAB MICROBIOLOGY METHOD 2024 9:45 AM EST [facility] Influenza A PCR Not Detected Not Detected LAB MICROBIOLOGY METHOD 2024 9:45 AM EST [facility] Influenza B PCR Not Detected Not Detected LAB MICROBIOLOGY METHOD 2024 9:45 AM EST [facility] Coronavirus 229E Not Detected Not Detected LAB MICROBIOLOGY METHOD 2024 9:45 AM EST [facility] Coronavirus HKU1 Not Detected Not Detected LAB MICROBIOLOGY METHOD 2024 9:45 AM EST [facility] Coronavirus OC43 Not Detected Not Detected LAB MICROBIOLOGY METHOD 2024 9:45 AM EST [facility] Coronavirus NL63 Not Detected Not Detected LAB MICROBIOLOGY METHOD 2024 9:45 AM [facility] Parainfluenza Virus 1 Not Detected Not Detected LAB MICROBIOLOGY METHOD 2024 9:45 AM EST [facility] Parainfluenza Virus 2 Not Detected Not Detected LAB MICROBIOLOGY METHOD 2024 9:45 AM [facility] Parainfluenza Virus 3 Not Detected Not Detected LAB MICROBIOLOGY METHOD 2024 9:45 AM [facility] Parainfluenza Virus 4 Not Detected Not Detected LAB MICROBIOLOGY METHOD 2024 9:45 AM [facility] RSV PCR Not Detected Not Detected LAB MICROBIOLOGY METHOD 2024 9:45 AM [facility] Human Metapneumovirus A and B Not Detected Not Detected LAB MICROBIOLOGY METHOD 2024 9:45 AM [facility] Rhinovirus/Entero virus Not Detected Not Detected LAB MICROBIOLOGY METHOD 2024 9:45 AM [facility] Bordetella pertussis Not Detected Not Detected LAB MICROBIOLOGY METHOD 2024 9:45 AM [facility] Bordetella parapertussis Not Detected Not Detected LAB MICROBIOLOGY METHOD 2024 9:45 AM [facility] Mycoplasma pneumo by PCR Not Detected Not Detected LAB MICROBIOLOGY METHOD 2024 9:45 AM [facility] Chlamydia pneumoniae Not Detected Not Detected LAB MICROBIOLOGY METHOD 2024 9:45 AM [facility] SARS COV-2 Detected(A ) Not Detected LAB MICROBIOLOGY METHOD 2024 9:45 AM EST [facility] Swab Both anterior nares / Unknown Non-blood Collection / Unknown 2024 8:42 AM EST 2024 8:48 AM EST Narrative [facility] - 2024 9:45 AM EST Testing was performed using the [employer] Respiratory Pathogen PCR Assay. All results must [...] MICROBIOLOGY - GENERA L ORDERABLES Final Result [facility] [address] [place] [address], * ECG-Annotated (2024) us Provider Onbase ECG ORDERABLES Final Result from Last 3 Months Care Teams Folder Taper Operator Relationship Specialty Start Date End Date Nitin Taylor MD [address] [place] [address] [address] [facility] [place] [address] PCP - General Internal Medicine 03/16/21
[2024-08-07 07:45] LABS: MANUAL DIFF FLAG NO
[2024-08-07 07:56] LABS: Basophils Percent Auto 0.9 % (0-2); Eosinophils Absolute Auto 0.1 X10*3/uL (0.0-0.4); Eosinophils Percent Auto 1.9 % (0-4); Hematocrit 43.4 % (42.0-52.0); Hemoglobin 13.9 g/dl (14.0-18.0); Imm Gran Abs Auto 0.01 X10*3/uL (0.00-0.03); Imm Gran Pct Auto 0.2 % (0.0-0.4); Lymphocytes Percent Auto 43.1 % (20-40); Mean Corpuscular Hemoglobin 26.3 pg (27.0-33.0); Mean Corpuscular Volume 82.2 fL (80.0-98.0); Mean Platelet Volume 10.4 fL (9.4-12.4); Monocytes Absolute Auto 0.4 X10*3/uL (0.1-1.2); Monocytes Percent Auto 9.4 % (2-11); Neutrophils Absolute Auto 2.1 x10*3/uL (2.0-8.3); Neutrophils Percent Auto 44.5 % (45-73); Platelet Count 264 X10*3/uL (160-400); Red Blood Count 5.28 X10*6/uL (4.60-5.80); White Blood Count 4.7 X10*3/uL (4.8-10.8)
[2024-08-07 08:02] LABS: Estimated Average Glucose 117 mg/dL; Hemoglobin A1C 142.0846 umol/L; Hemoglobin A1c % 5.7 % (<6.0)
[2024-08-07 08:56] LABS: Alanine Aminotransferase 23 U/L (0-40); Albumin Level 4.2 g/dL (3.5-5.0); Alkaline Phosphatase 82 U/L (39-117); Anion Gap 9 (12-20); Aspartate Amino Transferase 45 U/L (5-37); Bilirubin Total 0.5 mg/dL (0.0-1.0); Blood Urea Nitrogen 17 mg/dL (9-16); Calcium 8.9 mg/dL (8.4-10.2); Carbon Dioxide 27 mmol/L (22-29); Chloride 109 mmol/L (96-108); Cholesterol 168 mg/dL (<200); Estimated Glomerular Filt Rate > 60; Glucose Random 96 mg/dL (60-115); HDL Cholesterol 38 mg/dL (>40); LDL Cholesterol Calculated 116 mg/dL (<100); Sodium 141 mmol/L (135-145); Total Protein 7.8 g/dL (6.5-8.0); Triglycerides 70 mg/dL (<150)
[2024-08-07 09:12] LABS: Free T4 (Free Thyroxine) 0.99 ng/dL (0.71-1.85); Thyroid Stimulating Hormone 1.64 uIU/mL (0.32-4.0)
[2024-08-07 09:25] LABS: Folate 14.3 ng/mL (> or = 4.0); Vitamin B12 443 pg/mL (200-900)
== END 2024-08-07 07:33 | disposition home or self-care (01) ==
LOC: HO.LAB 07:32
PROVIDERS: PCP Internal Medicine; Visit Provider Internal Medicine
DX: R73.01 Impaired fasting glucose (principal); K76.0 Fatty (change of) liver, not elsewhere classified; E78.00 Pure hypercholesterolemia, unspecified; M79.672 Pain in left foot
CPT/HCPCS: 36415; 73630; 80053; 80061; 82607; 82746; 83036; 84153; 84439; 84443; 85025

== ENCOUNTER → 2024-08-07 07:48 | Outpatient (BNV) | payer OTHER, SELFPAY | PROVIDERS: PCP Internal Medicine; Visit Provider Radiology Diagnostic Radiology | DX: M79.672 Pain in left foot (principal); M19.072 Primary osteoarthritis, left ankle and foot | CPT/HCPCS: 73630 ==

== ENCOUNTER 2024-08-10 09:01 | Outpatient (AMB) | payer OTHER, SELFPAY ==
--- NOTE | 2024-08-10 09:06 | A.OFFVIS_ITS ---
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 He has swelling on his left ankle on and off. Also cramps. He has been having these issues for about 3 years. Non smoker, non diabetic. 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 We utilized his son as an corporate strategist. Complaints include pain in bilateral feet around the ankles, swelling of lower extremities, cramping, fatigue, and heaviness of the lower extremities. It has been affecting their daily activities including work, standing, physical activity. It is noted more so in the left leg. He is a nonsmoker and not a diabetic. 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 He denies any injuries when this started approximately 3 years ago. He does not get increased pain with walking, and relief when he stops. Patient denies any previous venous surgery or injections. Patient denies any history of DVT/ PE. Patient denies any history of phlebitis. Trial of compression includes - nothing They now present for vascular evaluation regarding their varicose veins. [facility] Medical History Polysubstance abuse Hepatitis C antibody positive in blood Overweight (BMI 25.0-29.9) Surgical History History of esophagogastroduodenoscopy (EGD) Family History Mother Diabetes Father Heart attack Social History Housing: Apartment Alcohol intake: current Comment: QD 6 pack Patient Tobacco Use Status: Former Tobacco user Tobacco use type: Cigarette Years Smoked: [id number] e-Cigarette/Vaping Use: Never Used Second Hand Smoke Exposure: No Current occupational status: employed Cognitive needs: No Hearing needs: No Vision needs: Yes Review of Systems Const Reports as per HPI and Denies weakness ENT Reports Normal hearing present and Denies dizziness Card Reports as per HPI, Denies chest pain, Denies chest pain at rest, Denies chest pain with activity, Denies dyspnea and Denies dyspnea on exertion Resp Reports as per HPI, Denies cough, Denies dyspnea and Denies dyspnea on exertion GI Reports as per HPI, Denies abdominal pain, Denies nausea and Denies vomiting Musc Denies numbness Skin/Breast Reports as per HPI, Denies erythema and Denies wounds Neuro Reports Normal hearing present, Denies dizziness, Denies numbness, Denies Sensory deficit (Neuro) and Denies weakness Psych Reports no additional complaints Endo Reports no additional complaints Physical Exam Const General: healthy appearing and no acute distress Orientation/consciousness: patient oriented x3 HEENT Head: Yes normal to inspection Ears: hearing grossly normal bilaterally Mouth: Normal oral and palatal mucosa present Resp Effort & Inspection: normal respiratory effort and able to speak in complete sentences Auscultation: clear to auscultation bilaterally Cardio Jugular venous distension: no JVD Rate: regular rate Rhythm: regular rhythm Heart sounds: S1 normal heart sound present and S2 normal heart sound present Bruits: no abdominal aortic bruits, no carotid bruits, no femoral bruits and no renal bruits Peripheral pulses: Peripheral pulses 2+ throughout GI Inspection: Yes normal to inspection Palpation (GI): No Abdominal aortic bruit present Skin General skin exam: no rashes or lesions noted Wounds: no wounds Hair: normal Neuro General: patient oriented x3 Cranial nerves: Yes Normal hearing present Cognition (Neuro): normal cognition Gait exam (Neuro): Normal gait present Motor exam (neuro): 5/5 motor strength present throughout Sensory Exam: No Sensory deficit (Neuro) Extrem Other: Bilateral lower extremities: Trace peripheral edema noted bilaterally. Slight discoloration around the ankles. Palpable DP pulses. No varicosities noted. CEAP: C - 3/4 E - primary A - supeficial P - reflux General: Yes normal to inspection, Yes full ROM, Yes capillary refill normal and Yes normal gait Assessment & Plan Assessment & Plan (1) Varicose veins of both lower extremities with inflammation: Code(s): I83.11 - Varicose veins of right lower extremity with inflammation; I83.12 - Varicose veins of left lower extremity with inflammation Category: Medical Plan: Lai is presenting today on a referral from his PCP for concerns of bilateral extremity swelling and foot pain. In short, the patient has evidence of venous insufficiency. I have discussed the pathophysiology with the patient. In addition I have provided informational material regarding venous disease to the patient. We have discussed conservative measures including compression, elevation, and exercise. We are able to provide him with compression stockings. I have taken the liberty of ordering venous insufficiency testing with the patient. They will follow up with me after testing. The patient had an opportunity to ask questions regarding the treatment plan. All questions were answered. Imaging studies, laboratory studies and physical exam results were discussed and reviewed in detail. No major barriers to understanding were identified. The patient expressed understanding and agreement with the above treatment plan. The patient is aware they should c ontact our office by phone for worsening of the current condition or the appearance of new symptoms. Thank you for allowing me to participate in the vascular care of this patient. If you have any questions or concerns regarding the treatment for the above condition please do not hesitate to contact me. The office telephone contact is [phone]. This note is constructed using voice recognition software. While every effort has been made to ensure accuracy, carpenter foreman errors may have been included. Thank you for allowing me to participate in the care of your patient. Yours sincerely, SALLY Tate Orders: Orders US venous duplex LE BI 1 Week I83.11 - Varicose veins of right lower extremity with inflammation, I83.12 - Varicose veins of left lower extremity with inflammation Coding Level of Care Code New Pt Level 4 (49682) Diagnoses Varicose veins of both lower extremities with inflammation I83.11; I83.12
--- OUTSIDE RECORDS SUMMARY | 2024-08-10 09:32 | XMS_ITS | Clinical Summary ---
Author Organization [facility] Address [address] [place] [address] Phone Care Team Providers Care Head Of Commission Department Name Role Phone Nitin Taylor MD Primary Care Provider [phone] Allergies No known active allergies Encounters Date Type Department Care Team Description 2024 9:00 AM EST - 2024 11:42 AM EST Emergency [facility] [address] [place] [id number] Nella Skinner DO COVID (Primary Dx) Discharge [...] 12 lead (2024 9:19 AM EST) Pathologist [facility] Ventricular Rate ECG 78 BPM GEMUSE Atrial Rate 78 BPM GEMUSE P-R Interval 146 ms GEMUSE QRS Duration 86 ms GEMUSE Q-T Interval 344 ms GEMUSE QTc 392 ms GEMUSE P Wave [place] 65 degrees GEMUSE R Cecil -16 degrees GEMUSE T Cecil 26 degrees GEMUSE ECG Interpretation Normal sinus rhythm Normal ECG When compared with ECG of 31-MAR-2017 22:26, No significant change was found Confirmed by Camille ROSENTHAL JAMES ([id number]) on 06/18/2024 6:50:28 AM GEMUSE 2024 9:19 AM EST 06/18/2024 6:50 AM EST us Nella Carey Brody DO ECG ORDERABLES Final Res ult GEMUSE * Troponin I high sensitivity (2024 9:04 AM EST) [facility] High Sensitivity Troponin I 4 <=79 ng/L LAB CHEMISTRY METHOD 2024 10:[address] [facility] Blood Venous blood specimen / Unknown Venipuncture / Unknown 2024 9:04 AM EST 2024 9:40 AM EST [facility] LAB - 2024 10:11 AM EST High levels of biotin in samples may falsely decrease hsTroponin values. ??Use caution when interpreting hsTroponin results in patients taking biotin who exhibit renal impairment (eGFR <60) or in patients taking more than 20 mg/day of biotin. Nella Skinner DO LAB BLOOD ORDERABLES Keshia l Result [facility] [address] [place] [address], * (ABNORMAL) CBC (2024 9:04 AM EST) [facility] WBC 4.6(L) 4.8 - 10.8 K/mcL LAB HEMETOLOGY METHOD 2024 9:[address] [facility] RBC 5.30 4.50 - 5.50 M/mcL LAB HEMETOLOGY METHOD 2024 9:[address] [facility] Hemoglobin 14.1 13.5 - 17.5 g/dL LAB HEMETOLOGY METHOD 2024 9:[address] [facility] Hematocrit 44.0 42.0 - 54.0 % LAB HEMETOLOGY METHOD 2024 9:[address] [facility] MCV 83.0 79.0 - 98.0 FL LAB HEMETOLOGY METHOD 2024 9:[address] [facility] MCH 26.6(L) 27.0 - 32.0 pcg LAB HEMETOLOGY METHOD 2024 9:45 AM EST [facility] MCHC 32.0 32.0 - 37.0 g/dL LAB HEMETOLOGY METHOD 2024 9:45 AM EST [facility] RDW 14.9 11.0 - 15.0 % LAB HEMETOLOGY METHOD 2024 9:45 AM EST [facility] Platelets 194 130 - 400 K/mcL LAB HEMETOLOGY METHOD 2024 9:45 AM EST [facility] MPV 10.3 7.0 - 11.0 FL LAB HEMETOLOGY METHOD 2024 9:45 AM EST [facility] NRBC 0.0 <1.0 % LAB HEMETOLOGY METHOD 2024 9:45 AM EST [facility] NRBC Absolute 0.00 <0.10 K/mcL LAB HEMETOLOGY METHOD 2024 9:45 AM EST [facility] Blood Venous blood specimen / Unknown Venipuncture / Unknown 2024 9:04 AM EST 2024 9:40 AM EST us Nella Skinner DO LAB BLOOD ORDERABLES Keshia l Result [facility] [address] [place] [address], * BNP (2024 9:04 AM EST) BNP 5 <=100 pcg/mL LAB CHEMISTRY METHOD 2024 10:54 AM EST [facility] Blood Venous blood specimen / Unknown Venipuncture / Unknown 2024 9:04 AM EST 2024 9:40 AM EST us Nella Skinner DO LAB BLOOD ORDERABLES Keshia l Result [facility] [address] [place] [address], * (ABNORMAL) Comprehensive metabolic panel (2024 9:04 AM EST) Sodium 137 133 - 145 mmol/L LAB CHEMISTRY METHOD 2024 10:[address] [facility] Potassium 4.0 3.5 - 5.5 mmol/L LAB CHEMISTRY METHOD 2024 10:[address] [facility] Chloride 105 96 - 110 mmol/L LAB CHEMISTRY METHOD 2024 10:[address] [facility] CO2 25 21 - 32 mmol/L LAB CHEMISTRY METHOD 20[address] [facility] Anion Gap 7 3 - 11 LAB CHEMISTRY METHOD 2024 10:[address] [facility] Glucose 85 70 - 100 mg/dL LAB CHEMISTRY METHOD 2024 10:[address] [facility] BUN 9 5 - 25 mg/dL LAB CHEMISTRY METHOD 2024 10:[address] [facility] Creatinine 1.04 0.70 - 1.30 mg/dL LAB CHEMISTRY METHOD 2024 10:[address] [facility] eGFR 86 >=60 mL/min/1. 73m2 LAB CHEMISTRY METHOD 2024 10:[address] [facility] Comment:Calculation based on the??Chronic Kidney Disease Epidemiology Collaboration (CKD-EPI) equation refit??without adjustment for race. BUN/Creatinine Ratio 8.7 LAB CHEMISTRY METHOD 2024 10:[address] [facility] Calcium 8.6 8.5 - 10.5 mg/dL LAB CHEMISTRY METHOD 2024 10:[address] [facility] AST (SGOT) 73(H) 10 - 42 unit/L LAB CHEMISTRY METHOD 2024 10:[address] [facility] ALT (SGPT) 57 10 - 60 unit/L LAB CHEMISTRY METHOD 2024 10:[address] [facility] Alkaline Phosphatase 135(H) 42 - 121 unit/L LAB CHEMISTRY METHOD 2024 10:[address] [facility] Total Protein 7.3 6.0 - 8.0 g/dL LAB CHEMISTRY METHOD 2024 10:[address] [facility] Albumin 3.9 3.2 - 5.0 g/dL LAB CHEMISTRY METHOD 2024 10:[address] [facility] Total Bilirubin 0.6 0.0 - 1.4 mg/dL LAB CHEMISTRY METHOD 2024 10:[address] [facility] Blood Venous blood specimen / Unknown Venipuncture / Unknown 2024 9:04 AM EST 2024 9:40 AM EST us Nella Skinner DO LAB BLOOD ORDERABLES Keshia l Result [facility] [address] [place] [address], [place] [phone] * XR Chest 2 Views (2024 8:51 [...] Signed Date: 2024 09:37 ET Workstation ID: [id number] Transcribed By: Self Edit Transcribed Date: 2024 [...] Signed Date: 2024 09:37 ET Workstation ID: [id number] Transcribed By: Self Edit Transcribed Date: 2024 09:26 ET Nella Skinner DO IMG XR PROCEDURES Final R esult * (ABNORMAL) Respiratory virus panel molecular study (2024 8:42 AM EST) Adenovirus Detection by PCR Not Detected Not Detected LAB MICROBIOLOGY METHOD 2024 9:45 AM EST [facility] Influenza A PCR Not Detected Not Detected LAB MICROBIOLOGY METHOD 2024 9:45 AM EST [facility] Influenza B PCR Not Detected Not Detected LAB MICROBIOLOGY METHOD 2024 9:45 AM EST [facility] Coronavirus 229E Not Detected Not Detected LAB MICROBIOLOGY METHOD 2024 9:45 AM EST [facility] Coronavirus HKU1 Not Detected Not Detected LAB MICROBIOLOGY METHOD 2024 9:45 AM EST [facility] Coronavirus OC43 Not Detected Not Detected LAB MICROBIOLOGY METHOD 2024 9:45 AM EST [facility] Coronavirus NL63 Not Detected Not Detected LAB MICROBIOLOGY METHOD 2024 9:[address] [facility] Parainfluenza Virus 1 Not Detected Not Detected LAB MICROBIOLOGY METHOD 2024 9:45 AM EST [facility] Parainfluenza Virus 2 Not Detected Not Detected LAB MICROBIOLOGY METHOD 2024 9:[address] [facility] Parainfluenza Virus 3 Not Detected Not Detected LAB MICROBIOLOGY METHOD 2024 9:[address] [facility] Parainfluenza Virus 4 Not Detected Not Detected LAB MICROBIOLOGY METHOD 2024 9:[address] [facility] RSV PCR Not Detected Not Detected LAB MICROBIOLOGY METHOD 2024 9:[address] [facility] Human Metapneumovirus A and B Not Detected Not Detected LAB MICROBIOLOGY METHOD 2024 9:[address] [facility] Rhinovirus/Entero virus Not Detected Not Detected LAB MICROBIOLOGY METHOD 2024 9:[address] [facility] Bordetella pertussis Not Detected Not Detected LAB MICROBIOLOGY METHOD 2024 9:[address] [facility] Bordetella parapertussis Not Detected Not Detected LAB MICROBIOLOGY METHOD 2024 9:[address] [facility] Mycoplasma pneumo by PCR Not Detected Not Detected LAB MICROBIOLOGY METHOD 2024 9:[address] [facility] Chlamydia pneumoniae Not Detected Not Detected LAB MICROBIOLOGY METHOD 2024 9:[address] [facility] SARS COV-2 Detected(A ) Not Detected LAB MICROBIOLOGY METHOD 2024 9:45 AM EST [facility] Swab Both anterior nares / Unknown Non-blood Collection / Unknown 2024 8:42 AM EST 2024 8:48 AM EST Narrative [facility] - 2024 9:45 AM EST Testing was performed using the [employer] Respiratory Pathogen PCR Assay. All results must [...] MICROBIOLOGY - GENERA L ORDERABLES Final Result [facility] [address] [place] [address], * ECG-Annotated (2024) us Provider Onbase ECG ORDERABLES Final Result from Last 3 Months Care Teams Head Of Commission Department Relationship Specialty Start Date End Date Nitin Taylor MD [address] [place] [address] [address] [facility] [place] [address] PCP - General Internal Medicine 03/16/21
--- OUTSIDE RECORDS SUMMARY | 2024-08-10 09:32 | XMS_ITS | Clinical Summary ---
Author Organization [facility] Address [address] [place] [address] Care Team Providers Care Floor Worker Well Service Name Role Phone Keyanna Merino HOLLIS Primary Care Provider [phone] Source Comments PLEASE NOTE, if this patient [...] Overview (03/14/2017): X ray done 03/04/17 @ [facility] - Mild Degenerative changes Heroin abuse ([facility]) 11/12/2016 Overview (11/12/2016): Seen in ER [facility] [...] Plan of Treatment Not on file Insurance [facility] PLAN Member Subscriber Plan / Payer (Ef fective 2015-Present) Name:McwilliamsKeyur Yanezto Relation to Subscriber:Self Name:Mcwilliams Lai Payer ID:[id number] Group ID:[id number] Type:Medicaid Address: [facility] [address] [place] [address] Care Teams Floor Worker Well Service Relationship Specialty Start Date End Date Keyanna Merino FNP [address] [place] [address] PCP - General Family Medicine, ABSORPTION OPERATOR 08/07/15
== END 2024-08-10 09:40 | disposition home or self-care (01) ==
PROVIDERS: PCP Internal Medicine; Visit Provider Physician Assistant Surgical
DX: I83.11 Varicose veins of right lower extremity with inflammation (principal); I83.12 Varicose veins of left lower extremity with inflammation
CPT/HCPCS: 99204

== ENCOUNTER → 2024-08-10 09:01 | Outpatient (BNVA) | payer OTHER, SELFPAY | PROVIDERS: PCP Internal Medicine; Visit Provider Physician Assistant Surgical | DX: I83.11 Varicose veins of right lower extremity with inflammation (principal); I83.12 Varicose veins of left lower extremity with inflammation | CPT/HCPCS: 99202 ==

== ENCOUNTER 2024-08-29 07:49 | Outpatient (REF) | payer OTHER, SELFPAY ==
--- NOTE | ~2024-08-29 | US_ITS ---
EXAMINATION: US LOWER EXTREMITY VENOUS (REFLUX EXAM), BILATERAL CLINICAL INFORMATION: Varices. COMPARISON: None. TECHNIQUE: Color flow triplex imaging and compression Doppler was performed to evaluate both the deep and the superficial systems bilaterally. To evaluate the superficial system, the examination was performed in the upright position. Color-flow Doppler ultrasound and compression ultrasound were utilized. In addition, maneuvers were utilized to demonstrate reflux. FINDINGS: 1. DEEP VENOUS ULTRASOUND OF THE RIGHT LOWER EXTREMITY: Common Femoral Vein: Compressible, normal respiratory variation and augmented flow. Femoral Vein: Compressible, normal color flow and augmentation. Popliteal Vein: Compressible, normal augmentation. Deep Reflux: There is no evidence of reflux in the deep system in either the common femoral vein, superficial femoral or the popliteal vein. There is no evidence of a Aguilar's cyst. 2. SUPERFICIAL ULTRASOUND WITH DOPPLER OF RIGHT LOWER EXTREMITY: GREAT SAPHENOUS VEIN: Saphenofemoral Junction: 0.6 cm; Reflux: 0 ms Proximal Thigh: 0.2 cm; Reflux: 704 ms Mid Thigh: 0.3 cm; Reflux: 2840 ms Distal Thigh: 0.3 cm; Reflux: 0 ms At Knee: 0.2 cm; Reflux: 772 ms Proximal Calf: 0.3 cm; Reflux: 1696 ms Mid Calf: 0.3 cm; Reflux: 0 ms Distal Calf: 0.3 cm; Reflux: 0 ms DUPLICATED MEDIAL GREAT SAPHENOUS VEIN: Diameter: None imaged Reflux: NA DUPLICATED LATERAL GREAT SAPHENOUS VEIN: Diameter: None imaged Reflux: NA SMALL SAPHENOUS VEIN: Saphenopopliteal Junction: 0.2 cm; Reflux: 0 ms Proximal: 0.2 cm; Reflux: 0 ms Distal: 0.1 cm; Reflux: 0 ms VEIN OF GIACOMINI: Size: 0.1 cm. Reflux: NA PERFORATORS: Location: Small saphenous vein at the proximal and mid calf. Size: 0.2-0.4 cm. Reflux: NA VARICOSITIES: Location: None imaged. Size: NA Reflux: NA 3. DEEP VENOUS ULTRASOUND OF THE LEFT LOWER EXTREMITY: Common Femoral Vein: Compressible, normal respiratory variation and augmented flow. Femoral Vein: Compressible, normal color flow and augmentation. Popliteal Vein: Compressible, normal augmentation. Deep Reflux: There is no evidence of reflux in the deep system in either the common femoral vein, superficial femoral or the popliteal vein. There is no evidence of a Aguilar's cyst. 4. SUPERFICIAL ULTRASOUND WITH DOPPLER OF LEFT LOWER EXTREMITY: GREAT SAPHENOUS VEIN: Saphenofemoral Junction: 0.7 cm; Reflux: 0 ms Proximal Thigh: 0.4 cm; Reflux: 0 ms Mid Thigh: 0.2 cm; Reflux: 0 ms Distal Thigh: 0.3 cm; Reflux: 0 ms At Knee: 0.2 cm; Reflux: 0 ms Proximal Calf: 0.3 cm; Reflux: 0 ms Mid Calf: 0.2 cm; Reflux: 0 ms Distal Calf: 0.2 cm; Reflux: 0 ms DUPLICATED MEDIAL GREAT SAPHENOUS VEIN: Diameter: None imaged Reflux: NA DUPLICATED LATERAL GREAT SAPHENOUS VEIN: Diameter: None imaged. Reflux: NA SMALL SAPHENOUS VEIN: Saphenopopliteal Junction: 0.3 cm; Reflux: 0 ms Proximal: 0.2 cm; Reflux: 0 ms Distal: 0.2 cm; Reflux: 0 ms VEIN OF GIACOMINI: Size: NA Reflux: NA PERFORATORS: Location: Small saphenous vein mid segment, distal thigh and proximal and mid calf. Size: 0.2-0.3 cm. Reflux: NA VARICOSITIES: Location: None Imaged Size: NA Reflux: NA US/US venous insuf bilat IMPRESSION: Right: Venous insufficiency, great saphenous vein from the proximal thigh to the proximal calf. Perforators without reflux. Left: No venous insufficiency. Perforators without reflux. Electronically signed by: Umer Miranda MD 08/29/2024 12:00 PM EDT
--- OUTSIDE RECORDS SUMMARY | 2024-08-29 07:52 | XMS_ITS | Clinical Summary ---
Author Organization [facility] Address [address] [place] [address] Care Team Providers Care Administration Clerk Name Role Phone Keyanna Merino HOLLIS Primary Care Provider [phone] Source Comments PLEASE NOTE, if this patient [...] (03/14/2017): X ray done 03/04/[address] [facility] - Mild Degenerative changes Heroin abuse ([facility]) 11/12/2016 Overview (11/12/2016): Seen in ER [facility] c/o Heroin overdose - admits snorting 4 bags - uses daily History of positive PPD 11/19/2015 History of recreational drug use 09/17/2015 Overview (09/17/2015): Last used 1 year ago Former cigarette smoker of unknown amount 2015 Anxiety 09/17/2015 Immunizations Immunization Administration Dates Next Due Hep B, Adult/Adol [...] Plan of Treatment Not on file Insurance [facility] PLAN Member Subscriber Plan / Payer (Ef fective 2015-Present) Name:McwilliamsKeyur Yanezto Relation to Subscriber:Self Name:Mcwilliams Lai Payer ID:[id number] Group ID:[id number] Type:Medicaid Address: [facility] [address] [place] [address] Care Teams Administration Clerk Relationship Specialty Start Date End Date Keyanna Merino FNP [address] [place] [address] PCP - General Family Medicine, FISH ROD MAKER 08/07/15
--- OUTSIDE RECORDS SUMMARY | 2024-08-29 07:52 | XMS_ITS | Clinical Summary ---
Author Organization [facility] Address [address] [place] [address] Phone Care Team Providers Care Goodyear Welter Name Role Phone Nitin Taylor MD Primary Care Provider [phone] Allergies No known active allergies Encounters Date Type Department Care Team Description 2024 9:00 AM EST - 2024 11:42 AM EST Emergency [facility] Emergency [address] [place] [phone] Nella Skinner DO COVID (Primary Dx) Discharge [...] 12 lead (2024 9:19 AM EST) Pathologist [facility] Ventricular Rate ECG 78 BPM GEMUSE Atrial Rate 78 BPM GEMUSE P-R Interval 146 ms GEMUSE QRS Duration 86 ms GEMUSE Q-T Interval 344 ms GEMUSE QTc 392 ms GEMUSE P Wave [place] 65 degrees GEMUSE R [place] -16 degrees GEMUSE T [place] 26 degrees GEMUSE ECG Interpretation Normal sinus rhythm Normal ECG When compared with ECG of 31-MAR-2017 22:26, No significant change was found Confirmed by Camille ROSENTHAL JAMES ([id number]) on 06/18/2024 6:50:28 AM GEMUSE 2024 9:19 AM EST 06/18/2024 6:50 AM EST us Nella Carey Brody DO ECG ORDERABLES Final Res ult GEMUSE * Troponin I high sensitivity (2024 9:04 AM EST) [facility] High Sensitivity Troponin I 4 <=79 ng/L LAB CHEMISTRY METHOD 2024 10:11 AM [facility] Blood Venous blood specimen / Unknown Venipuncture / Unknown 2024 9:04 AM EST 2024 9:40 AM EST [facility] LAB - 2024 10:11 AM EST High levels of biotin in samples may falsely decrease hsTroponin values. ??Use caution when interpreting hsTroponin results in patients taking biotin who exhibit renal impairment (eGFR <60) or in patients taking more than 20 mg/day of biotin. Nella Skinner DO LAB BLOOD ORDERABLES Keshia l Result [facility] [address] [place] [address], * (ABNORMAL) CBC (2024 9:04 AM EST) [facility] WBC 4.6(L) 4.8 - 10.8 K/mcL LAB HEMETOLOGY METHOD 2024 9:45 AM [facility] RBC 5.30 4.50 - 5.50 M/mcL LAB HEMETOLOGY METHOD 2024 9:45 AM [facility] Hemoglobin 14.1 13.5 - 17.5 g/dL LAB HEMETOLOGY METHOD 2024 9:45 AM [facility] Hematocrit 44.0 42.0 - 54.0 % LAB HEMETOLOGY METHOD 2024 9:45 AM [facility] MCV 83.0 79.0 - 98.0 FL LAB HEMETOLOGY METHOD 2024 9:45 AM [facility] MCH 26.6(L) 27.0 - 32.0 pcg LAB HEMETOLOGY METHOD 2024 9:45 AM EST [facility] MCHC 32.0 32.0 - 37.0 g/dL LAB HEMETOLOGY METHOD 2024 9:45 AM EST [facility] RDW 14.9 11.0 - 15.0 % LAB HEMETOLOGY METHOD 2024 9:45 AM EST [facility] Platelets 194 130 - 400 K/mcL LAB HEMETOLOGY METHOD 2024 9:45 AM EST [facility] MPV 10.3 7.0 - 11.0 FL LAB HEMETOLOGY METHOD 2024 9:45 AM EST [facility] NRBC 0.0 <1.0 % LAB HEMETOLOGY METHOD 2024 9:45 AM EST [facility] NRBC Absolute 0.00 <0.10 K/mcL LAB HEMETOLOGY METHOD 2024 9:45 AM EST [facility] Blood Venous blood specimen / Unknown Venipuncture / Unknown 2024 9:04 AM EST 2024 9:40 AM EST us Nella Skinner DO LAB BLOOD ORDERABLES Keshia l Result [facility] [address] [place] [address], * BNP (2024 9:04 AM EST) BNP 5 <=100 pcg/mL LAB CHEMISTRY METHOD 2024 10:54 AM EST [facility] Blood Venous blood specimen / Unknown Venipuncture / Unknown 2024 9:04 AM EST 2024 9:40 AM EST us Nella Skinner DO LAB BLOOD ORDERABLES Keshia l Result [facility] [address] [place] [address], * (ABNORMAL) Comprehensive metabolic panel (2024 9:04 AM EST) Sodium 137 133 - 145 mmol/L LAB CHEMISTRY METHOD 2024 10:11 AM [facility] Potassium 4.0 3.5 - 5.5 mmol/L LAB CHEMISTRY METHOD 2024 10:11 AM [facility] Chloride 105 96 - 110 mmol/L LAB CHEMISTRY METHOD 2024 10:11 AM [facility] CO2 25 21 - 32 mmol/L LAB CHEMISTRY METHOD 2024 10:11 AM [facility] Anion Gap 7 3 - 11 LAB CHEMISTRY METHOD 2024 10:11 AM [facility] Glucose 85 70 - 100 mg/dL LAB CHEMISTRY METHOD 2024 10:11 AM [facility] BUN 9 5 - 25 mg/dL LAB CHEMISTRY METHOD 2024 10:11 AM [facility] Creatinine 1.04 0.70 - 1.30 mg/dL LAB CHEMISTRY METHOD 2024 10:11 AM [facility] eGFR 86 >=60 mL/min/1. 73m2 LAB CHEMISTRY METHOD 2024 10:11 AM [facility] Comment:Calculation based on the??Chronic Kidney Disease Epidemiology Collaboration (CKD-EPI) equation refit??without adjustment for race. BUN/Creatinine Ratio 8.7 LAB CHEMISTRY METHOD 2024 10:11 AM [facility] Calcium 8.6 8.5 - 10.5 mg/dL LAB CHEMISTRY METHOD 2024 10:11 AM [facility] AST (SGOT) 73(H) 10 - 42 unit/L LAB CHEMISTRY METHOD 2024 10:11 AM [facility] ALT (SGPT) 57 10 - 60 unit/L LAB CHEMISTRY METHOD 2024 10:11 AM [facility] Alkaline Phosphatase 135(H) 42 - 121 unit/L LAB CHEMISTRY METHOD 2024 10:11 AM [facility] Total Protein 7.3 6.0 - 8.0 g/dL LAB CHEMISTRY METHOD 2024 10:11 AM [facility] Albumin 3.9 3.2 - 5.0 g/dL LAB CHEMISTRY METHOD 2024 10:11 AM [facility] Total Bilirubin 0.6 0.0 - 1.4 mg/dL LAB CHEMISTRY METHOD 2024 10:11 AM [facility] Blood Venous blood specimen / Unknown Venipuncture / Unknown 2024 9:04 AM EST 2024 9:40 AM EST us Nella Skinner DO LAB BLOOD ORDERABLES Keshia l Result [facility] [address] [place] [address], [place] [phone] * XR Chest 2 Views (2024 8:51 [...] Signed Date: 2024 09:37 ET Workstation ID: [id number] Transcribed By: Self Edit Transcribed Date: 2024 [...] Signed Date: 2024 09:37 ET Workstation ID: [id number] Transcribed By: Self Edit Transcribed Date: 2024 [...] AM EST [facility] Coronavirus OC43 Not Detected Not Detected LAB MICROBIOLOGY METHOD 2024 9:45 AM EST [facility] Coronavirus NL63 Not Detected Not Detected LAB MICROBIOLOGY METHOD 2024 9:45 AM [facility] Parainfluenza Virus 1 Not Detected Not Detected LAB MICROBIOLOGY METHOD 2024 9:45 AM EST [facility] Parainfluenza Virus 2 Not Detected Not Detected LAB MICROBIOLOGY METHOD 2024 9:45 AM [facility] Parainfluenza Virus 3 Not Detected Not Detected LAB MICROBIOLOGY METHOD 2024 9:45 AM [facility] Parainfluenza Virus 4 Not Detected Not Detected LAB MICROBIOLOGY METHOD 2024 9:45 AM [facility] RSV PCR Not Detected Not Detected LAB MICROBIOLOGY METHOD 2024 9:45 AM [facility] Human Metapneumovirus A and B Not Detected Not Detected LAB MICROBIOLOGY METHOD 2024 9:45 AM [facility] Rhinovirus/Entero virus Not Detected Not Detected LAB MICROBIOLOGY METHOD 2024 9:45 AM [facility] Bordetella pertussis Not Detected Not Detected LAB MICROBIOLOGY METHOD 2024 9:45 AM [facility] Bordetella parapertussis Not Detected Not Detected LAB MICROBIOLOGY METHOD 2024 9:45 AM [facility] Mycoplasma pneumo by PCR Not Detected Not Detected LAB MICROBIOLOGY METHOD 2024 9:45 AM [facility] Chlamydia pneumoniae Not Detected Not Detected LAB MICROBIOLOGY METHOD 2024 9:45 AM [facility] SARS COV-2 Detected(A ) Not Detected LAB MICROBIOLOGY METHOD 2024 9:45 AM EST [facility] Swab Both anterior nares / Unknown Non-blood Collection / Unknown 2024 8:42 AM EST 2024 8:48 AM EST Narrative [facility] - 2024 9:45 AM EST Testing was performed using the [employer] Respiratory Pathogen PCR Assay. All results must [...] Final Result [facility] [address] [place] [address], * ECG-Annotated (2024) Provider Onbase ECG ORDERABLES Final Result from Last 3 Months Insurance MEDICAID - [place] Care Teams Goodyear Welter Relationship Specialty Start Date End Date Nitin Taylor MD [address] [place] [address] [address] [facility] Internal Medicine [place], [place] [id number] PCP - General Internal Medicine 03/16/21
== END 2024-08-29 07:50 | disposition home or self-care (01) ==
LOC: HO.US 07:49
PROVIDERS: PCP Internal Medicine; Visit Provider Physician Assistant Surgical
DX: I83.11 Varicose veins of right lower extremity with inflammation (principal); I83.12 Varicose veins of left lower extremity with inflammation
CPT/HCPCS: 93970

== ENCOUNTER → 2024-08-29 07:51 | Outpatient (BNV) | payer OTHER, SELFPAY | PROVIDERS: PCP Internal Medicine; Visit Provider Radiology Diagnostic Radiology | DX: I87.2 Venous insufficiency (chronic) (peripheral) (principal) | CPT/HCPCS: 93970 ==

== ENCOUNTER 2024-09-04 14:33 | Outpatient (AMB) | payer OTHER, SELFPAY ==
--- NOTE | 2024-09-04 14:37 | MHC.OFFVIS ---
Intake Visit Reasons: follow up s/p US 08/29/24 Intake Note: Patient presents for follow up US performed on 08/29/24. Patient states his legs hurt a little . No other complaints. Accompanied by: Spouse Allergies No Known Allergies [No Known Allergies*] Allergy (Verified 09/04/24 14:41) [facility] HPI follow up s/p US 08/29/24: Details: The patient is a 54-year-old male presenting with pain in the left lower extremity. Symptoms have persisted for more than three years. The pain primarily affects the left leg and is more severe on this side compared to the right. He denies smoking, diabetes, or any impactful injuries. He reports occasional swelling. Biggest complaint is his left ankle. He does have a history of alcohol abuse, polysubstance abuse and has been positive for hep C. He now presents for vascular follow-up. [facility] Medical History Polysubstance abuse Hepatitis C antibody positive in blood Overweight (BMI 25.0-29.9) Surgical History History of esophagogastroduodenoscopy (EGD) Family History Mother Diabetes Father Heart attack Social History Housing: Apartment Alcohol intake: current Comment: QD 6 pack Patient Tobacco Use Status: Former Tobacco user Tobacco use type: Cigarette Years Smoked: [id number] e-Cigarette/Vaping Use: Never Used Second Hand Smoke Exposure: No Current occupational status: employed Cognitive needs: No Hearing needs: No Vision needs: Yes Review of Systems Const All systems reviewed & are unremarkable except as noted in HPI and below Reports no additional complaints ENT Reports Normal hearing present Card Denies chest pain, Denies chest pain at rest, Denies chest pain with activity and Denies pedal edema Resp Denies cough GI Denies abdominal pain Musc Denies abnormal gait, Denies muscle cramps and Denies radiating pain into limb Skin/Breast Denies skin ulcer and Denies wounds Neuro Reports Normal hearing present and Denies abnormal gait Psych Reports no additional complaints Physical Exam Const General: cooperative, healthy appearing and comfortable Orientation/consciousness: oriented to person, oriented to place and oriented to time HEENT Head: Yes normal to inspection Neck Neck: Yes normal visual inspection Carotids: no bruits Chest Chest palpation & inspection: normal inspection of the chest Resp Effort & Inspection: normal respiratory effort and able to speak in complete sentences Auscultation: clear to auscultation bilaterally, no crackles, no rales, no rhonchi and no wheezes Cardio Other: Palpable bilateral dorsalis pedis pulses Rate: regular rate Rhythm: regular rhythm Heart sounds: S1 normal heart sound present and S2 normal heart sound present Bruits: no carotid bruits Peripheral pulses: Peripheral pulses 2+ throughout GI Inspection: Yes normal to inspection Skin Wounds: no wounds Hair: normal Neuro General: oriented to person, oriented to place and oriented to time Cranial nerves: Yes CN's II-XII intact bilaterally and Yes Normal hearing present Cognition (Neuro): normal cognition Motor exam (neuro): 5/5 motor strength present throughout Extrem Other: venous exam: No significant superficial varicosities or spider telangiectasias, minimal edema General: No clubbing, No cyanosis and No edema Psych Appearance: grossly normal Mental Status: mental status grossly normal Speech and movement: Normal speech and movement present Results Reviewed Results Reviewed: Brief summary of venous insufficiency testing is as follows: right great saphenous vein: Focally positive right thigh and knee. right small saphenous vein: negative right accessory vein: none present left great saphenous vein: negative left small saphenous vein: negative left accessory vein: none present Please note there is no evidence of any venous aneurysms or significant tortuosity Assessment & Plan Assessment & Plan (1) Varicose veins of both lower extremities with inflammation: Code(s): I83.11 - Varicose veins of right lower extremity with inflammation; I83.12 - Varicose veins of left lower extremity with inflammation Category: Medical Plan: In short patient is negative for any significant venous insufficiency. He does have some left ankle pain and it appears to be more musculoskeletal in nature. At the current time we did discuss routine conservative measures including compression elevation and exercise. He will follow up with us on an as-needed basis. Thank you for allowing us to assist in his care. Coding Level of Care Code Est Pt Level 4 (20085) Diagnoses Varicose veins of both lower extremities with inflammation I83.11; I83.12
--- OUTSIDE RECORDS SUMMARY | 2024-09-04 17:42 | XMS_ITS | Clinical Summary ---
Author Organization [facility] Address [address] [place] [address] Phone Care Team Providers Care Dental Professional Name Role Phone Nitin Taylor MD Primary Care Provider [phone] Allergies No known active allergies Encounters Date Type Department Care Team Description 2024 9:00 AM EST - 2024 11:42 AM EST Emergency [facility] Emergency [address] [place] [id number] Nella Skinner DO COVID (Primary Dx) Discharge [...] age to complete this topic Meningococcal B Vaccine Aged Out No l onger eligible based on patient's age to complete [...] GEMUSE QTc 392 ms GEMUSE P Wave Sidney 65 degrees GEMUSE R Sidney -16 degrees GEMUSE T Sidney 26 degrees GEMUSE ECG Interpretation Normal sinus rhythm Normal ECG When compared with ECG of 31-MAR-2017 22:26, No significant change was found Confirmed by Camille ROSENTHAL JAMES ([id number]) on 06/18/2024 6:50:28 AM GEMUSE 2024 9:19 AM EST 06/18/2024 6:50 AM EST us Nella Carey Brody DO ECG ORDERABLES Final Res ult GEMUSE * Troponin I high sensitivity (2024 9:04 AM EST) High Sensitivity Troponin I 4 <=79 ng/L LAB CHEMISTRY METHOD 2024 10:11 AM [facility] Blood Venous blood specimen / Unknown Venipuncture / Unknown 2024 9:04 AM EST 2024 9:40 AM EST [facility] - 2024 10:11 AM EST High levels of biotin in samples may falsely decrease hsTroponin values. ??Use caution when interpreting hsTroponin results in patients taking biotin who exhibit renal impairment (eGFR <60) or in patients taking more than 20 mg/day of biotin. us Nella Skinner DO LAB BLOOD ORDERABLES Keshia l Result [facility] [address] [place] [address], * (ABNORMAL) CBC (2024 9:04 AM EST) [facility] WBC 4.6(L) 4.8 - 10.8 K/mcL LAB [...] FL LAB HEMETOLOGY METHOD 2024 9:45 AM [facility] MCH 26.6(L) 27.0 - 32.0 pcg LAB HEMETOLOGY METHOD 2024 9:45 AM EST [facility] MCHC 32.0 32.0 - 37.0 g/dL LAB HEMETOLOGY METHOD 2024 9:45 AM EST [facility] RDW 14.9 11.0 - 15.0 % LAB HEMETOLOGY METHOD 2024 9:45 AM EST [facility] Platelets 194 130 - 400 K/mcL LAB HEMETOLOGY METHOD 2024 9:45 AM EST [facility] MPV 10.3 7.0 - 11.0 FL LAB HEMETOLOGY METHOD 2024 9:45 AM EST [facility] NRBC 0.0 <1.0 % LAB HEMETOLOGY METHOD 2024 9:45 AM EST [facility] NRBC Absolute 0.00 <0.10 K/mcL LAB HEMETOLOGY METHOD 2024 9:45 AM EST [facility] Blood Venous blood specimen / Unknown Venipuncture / Unknown 2024 9:04 AM EST 2024 9:40 AM EST us Nella Skinner DO LAB BLOOD ORDERABLES Keshia l Result [facility] [address] [place] [address], * BNP (2024 9:04 AM EST) BNP 5 <=100 pcg/mL LAB CHEMISTRY METHOD 2024 10:54 AM EST [facility] Blood Venous blood specimen / Unknown Venipuncture / Unknown 2024 9:04 AM EST 2024 9:40 AM EST us Nella Skinner DO LAB BLOOD ORDERABLES Keshia l Result [facility] [address] [place] [address], * (ABNORMAL) Comprehensive metabolic panel (2024 9:04 [...] AM EST 2024 9:40 AM EST us Pritesh Sonu Skinner DO LAB BLOOD ORDERABLES Keshia l Result [facility] [address] [place] [address], [place] [phone] * XR Chest 2 Views (2024 8:51 AM EST) Anatomical Region Laterality Modality Body Radiographic Sydnie ging 2024 9:2 6 AM EST Impressions 2024 9:37 AM EST No acute cardiopulmonary process seen. No change from previous exam 2020. -------- FINAL REPORT -------- Dictated By: Raji Anderson Dictated Date: 2024 09:26 ET Assigned Physician: Raji Anderson Reviewed and Electronically Signed By: Raji Anderson Signed Date: 2024 09:37 ET Workstation ID: [id number] Transcribed By: Self Edit Transcribed Date: 2024 [...] Signed Date: 2024 09:37 ET Workstation ID: [id number] Transcribed By: Self Edit Transcribed Date: 2024 09:26 ET Nella Skinner DO IMG XR PROCEDURES Final R esult * (ABNORMAL) Respiratory virus panel molecular study (2024 8:42 AM EST) Adenovirus Detection by PCR Not Detected Not Detected LAB MICROBIOLOGY METHOD 2024 9:45 AM EST [facility] Influenza A PCR Not Detected Not Detected LAB MICROBIOLOGY METHOD 2024 9:45 AM EST [facility] Influenza B PCR Not Detected Not Detected LAB MICROBIOLOGY METHOD 2024 9:45 AM EST [facility] Coronavirus 229E Not Detected Not Detected LAB MICROBIOLOGY METHOD 2024 9:45 AM EST [facility] Coronavirus HKU1 Not Detected Not Detected LAB MICROBIOLOGY METHOD 2024 9:45 AM EST [facility] Coronavirus OC43 Not Detected Not Detected LAB MICROBIOLOGY METHOD 2024 9:45 AM EST [facility] Coronavirus NL63 Not Detected Not Detected LAB MICROBIOLOGY METHOD 2024 9:45 AM [facility] Parainfluenza Virus 1 Not Detected Not Detected LAB MICROBIOLOGY METHOD 2024 9:45 AM EST [facility] Parainfluenza Virus 2 Not Detected Not Detected LAB MICROBIOLOGY METHOD 2024 9:45 AM [facility] Parainfluenza Virus 3 Not Detected Not Detected LAB MICROBIOLOGY METHOD 2024 9:45 AM [facility] Parainfluenza Virus 4 Not Detected [...] AM [facility] Bordetella parapertussis Not Detected Not Detected LAB MICROBIOLOGY METHOD 2024 9:45 AM [facility] Mycoplasma pneumo by PCR Not Detected Not Detected LAB MICROBIOLOGY METHOD 2024 9:45 AM [facility] Chlamydia pneumoniae Not Detected Not Detected LAB MICROBIOLOGY METHOD 2024 9:45 AM [facility] SARS COV-2 Detected(A ) Not Detected LAB MICROBIOLOGY METHOD 2024 9:45 AM EST [facility] Swab Both anterior nares / Unknown Non-blood Collection / Unknown 2024 8:42 AM EST 2024 8:48 AM EST Narrative [facility] - 2024 9:45 AM EST Testing was performed using the [employer] Respiratory Pathogen PCR Assay. All results must [...] MICROBIOLOGY - GENERA L ORDERABLES Final Result [facility] [address] [place] [address], * ECG-Annotated (2024) Provider Onbase ECG ORDERABLES Final Result from Last 3 Months Insurance MEDICAID - [place] Care Teams Dental Professional Relationship Specialty Start Date End Date Nitin Taylor MD [address] [place] [address] [address] [facility] [place], [place] [id number] PCP - General Internal Medicine 03/16/21
--- OUTSIDE RECORDS SUMMARY | 2024-09-04 17:42 | XMS_ITS | Clinical Summary ---
Author Organization [facility] Address [address] [place] [address] Care Team Providers Care Cd Reactor Operator Head Name Role Phone Keyanna Merino HOLLIS Primary Care Provider [phone] Source Comments PLEASE NOTE, if this patient [...] Overview (03/14/2017): X ray done 03/04/[address] [facility] - Mild Degenerative changes Heroin abuse ([facility]) 11/12/2016 Overview (11/12/2016): Seen in [...] Plan of Treatment Not on file Insurance [facility] PL[facility] Member Subscriber Plan / Payer (Ef fective 2015-Present) Name:McwilliamsKeyur Yanezto Relation to Subscriber:Self Name:Mcwilliams Lai Payer ID:[id number] Group ID:[id number] Type:Medicaid Address: [facility] [address] [place] [address] Care Teams Cd Reactor Operator Head Relationship Specialty Start Date End Date Keyanna Merino FNP [address] [place] [address] PCP - General Family Medicine, [facility]IER 08/07/15
== END 2024-09-04 14:57 | disposition home or self-care (01) ==
LOC: HO.HVS 14:33
PROVIDERS: PCP Internal Medicine; Visit Provider Surgery Vascular Surgery
DX: I83.11 Varicose veins of right lower extremity with inflammation (principal); I83.12 Varicose veins of left lower extremity with inflammation
CPT/HCPCS: 99214

== ENCOUNTER → 2024-09-04 14:33 | Outpatient (BNVA) | payer OTHER, SELFPAY | PROVIDERS: PCP Internal Medicine; Visit Provider Surgery Vascular Surgery | DX: I83.11 Varicose veins of right lower extremity with inflammation (principal); I83.12 Varicose veins of left lower extremity with inflammation | CPT/HCPCS: 99212 ==

== ENCOUNTER 2024-09-27 14:42 | Outpatient (AMB) | payer OTHER, SELFPAY ==
--- NOTE | 2024-09-27 14:50 | MHC.PC.OV ---
Vital Signs 09/27/24 14:52 Height 5 ft 6 in Weight 191 lb BMI 30.8 BP 136/84 Blood Pressure Location Lt brachial Position Sitting Intake Visit Reasons: Swollen Feet Intake Note: Patient here c/o left foot pain and tingling [employer] Supervisor Required: No Accompanied by: Spouse Allergies No Known Allergies [No Known Allergies*] Allergy (Verified 09/27/24 15:05) Medication List - Last Reconciled 09/27/24 by Chari Anderson MD blood pressure monitor (Blood Pressure Kit) As directed omeprazole 20 mg PO DAILY Tobacco use date assessed: 07/26/24 Dental Screening Dental Screen Date: 07/26/24 HPI HPI Comments History of Present Illness Details The patient is a 54-year-old male presenting with pain and swelling in the lower extremities. He has had these issues for about three years. After a previous referral to a vascular surgeon, an ultrasound showed venous insufficiency in the right leg, though not in the painful left leg. His symptoms are aggravated by prolonged standing related to his job. Rest alleviates the discomfort temporarily. Compression stockings were prescribed three months ago without significant relief from swelling. [facility] Medical History Polysubstance abuse Hepatitis C antibody positive in blood Overweight (BMI 25.0-29.9) Surgical History History of esophagogastroduodenoscopy (EGD) Family History Mother Diabetes Father Heart attack Social History (Updated 09/27/24 @ 15:09 by Chari Anderson MD) Housing: Apartment Alcohol intake: current Alcohol intake frequency: 3 or more drinks per day Comment: QD 6 pack Patient Tobacco Use Status: Never used Tobacco Years Smoked: [id number] e-Cigarette/Vaping Use: Never Used Second Hand Smoke Exposure: No service: No Current occupational status: employed Cognitive needs: No Hearing needs: No Vision needs: Yes Questionnaire PHQ-9 Over the last 2 weeks, how often have you been bothered by any of the following problems? 1. Little interest or pleasure in doing things: not at all 2. Feeling down, depressed, or hopeless: not at all 3. Trouble falling or staying asleep, or sleeping too much: not at all 4. Feeling tired or having little energy: not at all 5. Poor appetite or overeating: not at all 6. Feeling bad about yourself - or that you are a failure or have let yourself or your family down: not at all 7. Trouble concentrating on things, such as reading the newspaper or watching television: not at all 8. Moving or speaking so slowly that other people could have noticed. Or the opposite - being so fidgety or restless that you have been moving around a lot more than usual: not at all 9. Thoughts that you would be better off or of hurting yourself in some way: not at all Total score: 0 Depression Screening Interpretation: Negative Depression Screening Done: Yes 66134 - PHQ-9 Billing: Yes Source: Developed by Drs. Darrell Harry, Shira Vicente, Jersey Tinajero and colleagues, with an educational carolina from [employer]. Thrive Questionnaire Date Thrive assessed: 07/26/24 I am a: Patient What is your living situation today?: I have a place to live, but I am worried about losing it in the future Within the past 12 months, did the food you bought not last and you didn't have the money to get more?: I choose not to answer this question Within the past 12 months, did you worry whether your food would run out before you got money to buy more?: I choose not to answer this question Do you have trouble paying for medicines?: No Do you have trouble getting transportation to medical appointments?: No Do you have trouble paying your heating and electricity bill?: No Do you have trouble taking care of your child, family member or friend?: No Do you have trouble with day-to-day activities such as bathing, preparing meals, shopping, managing finances, etc.?: No Are you currently unemployed and looking for a job?: No Are you interested in more education?: No Please select the resources that you would like help with: None Currently or been in a relationship where the following occur: No concerns reported THRIVE Score: 1 AUDIT C Alcohol Use Questionnaire (AUDIT-C) 1. How often do you have a drink containing alcohol?: 4 or more times a week 2. How many drinks containing alcohol do you have on a typical day when you are drinking?: 5 or 6 3. How often do you have six or more drinks on one occasion?: Weekly Total Score: 9 YOSEF-7 AMB Questionnaire YOSEF-7 Date YOSEF - 7 assessed: 07/26/24 Feeling nervous, anxious, or on edge: 0 = Not at all Not being able to stop or control worryin = Not at all Worrying too much about different things: 0 = Not at all Trouble relaxin = Not at all Being so restless that it is hard to sit still: 0 = Not at all Becoming easily annoyed or irritable: 0 = Not at all Feeling afraid as if something awful might happen: 0 = Not at all Total YOSEF-7 score (0-4 normal; 5-9 mild; 10-14 moderate; 15-21 severe): 0 Source: Developed by Drs. Darrell Harry, Shira Vicente, Jersey Tinajero and colleagues, with an educational carolina from [employer]. YOSEF-7 Assessment Billing YOSEF-7 Assessment Tool: YOSEF-7 Assessment 53621 Review of Systems Const All systems reviewed & are unremarkable except as noted in HPI and below Card Denies chest pain at rest, Denies chest pain with activity, Denies edema, Denies irregular heart rhythm, Denies claudication, Denies dyspnea, Denies dyspnea on exertion, Denies orthopnea, Denies paroxysmal nocturnal dyspnea and Denies slow heart rate Resp Denies cough, Denies dyspnea and Denies dyspnea on exertion Musc Reports arthralgias and Reports joint swelling Physical exam (Primary Care) Vital Signs: Last Vital Signs BP 136/84 09/27/24 14:52 BMI result Body Mass Index 30.8 BMI Assessment/Plan discussion: High BMI High, discussed plan: lifestyle, weight reduction, dietary and physical activity Tobacco/Smoking Status: Tobacco use Status Tobacco use date assessed 07/26/24 09/27/24 14:59 Patient Tobacco Use Status Never used Tobacco 09/27/24 15:09 Tobacco use type 09/27/24 15:09 e-Cigarette/Vaping Use Never Used 09/27/24 15:09 PHQ-9: PHQ-9 Score PHQ-9: Total score 0 09/27/24 15:10 Depression Screening Interpretation: Negative Thrive Assessment: Date of Thrive Assessment Date Thrive assessed 07/26/24 09/27/24 14:59 Currently or been in a relationship where the following occur: No concerns reported Resp Effort & Inspection: normal respiratory effort Auscultation: clear to auscultation bilaterally Cardio Jugular venous distension: no JVD Rate: regular rate Rhythm: regular rhythm Heart sounds: S1 normal heart sound present and S2 normal heart sound present Extrem General: Yes full ROM Coding Level of Care Code Est Pt Level 3 (41926) Complex EM visit Add On G2211 Diagnoses Varicose veins of both lower extremities with inflammation I83.11; I83.12 Additional Codes YOSEF-7 Assessment Billing - YOSEF-7 Assessment Tool: YOSEF-7 Assessment 19214 ([id number]) PHQ-9 - 43449 - PHQ-9 Billing: Yes ([id number]) Time Spent (min) 19 Assessment & Plan Assessment & Plan (1) Varicose veins of both lower extremities with inflammation: Code(s): I83.11 - Varicose veins of right lower extremity with inflammation; I83.12 - Varicose veins of left lower extremity with inflammation Category: Medical Plan The plan involves addressing the noted venous insufficiency in the right leg and managing the pain and swelling symptoms the patient experiences, mainly due to occupational demands. Although previous lab results exhibit mild insufficiency on one leg, adjusting or evaluating the efficacy of compression therapy was advised given the continued symptoms. Modifying lifestyle choices, particularly alcohol, and strategic rest postures were also prioritized to mitigate symptoms. Patient was informed and verbally consented to the use of an ambient scribe for clinic note documentation during this visit. In our discussion, I explained the likely correlation of the patient?s occupational standing tasks with the exacerbated leg symptoms. The effectiveness of compression stockings was reviewed, and the possibility of adjusting the strength or ensuring the correct application was discussed. We deliberated over the limited benefit of pain medications due to their side effects. The patient was informed about the outcomes of the previous vascular assessment, underscoring lifestyle changes to better manage his condition and minimize workplace symptoms. I emphasized the importance of continued monitoring and revising intervention strategies if diagnostic outcomes remain inconclusive. Medications: New [compression stockings] As directed 1 ea 1RF I83.11 - Varicose veins of right lower extremity with inflammation, I83.12 - Varicose veins of left lower extremity with inflammation Patient Instructions: - Continue usage of compression stockings and ensure proper application. - Aim to reduce alcohol consumption to improve leg circulation. - Incorporate rest periods with leg elevation at work if possible. - Report any significant changes in symptoms or new developments promptly. - Consider consulting for adjustments in compression therapy for symptomatic relief.
[2024-09-27 14:52] VITALS: BP 136/84; BMI 30.8
--- OUTSIDE RECORDS SUMMARY | 2024-09-27 16:42 | XMS_ITS | Clinical Summary ---
Author Organization [facility] Address [address] [place] [address] Phone Care Team Providers Care Consulting Manager Name Role Phone Nitin Taylor MD Primary Care Provider [phone] Allergies No known active allergies Medical History Medical History Date Comments Over [...] Maintenance Due Date Last Done Comments Hepatitis A Vaccines (1 of 2 - Risk 2-dose series) 1991 Hepatitis B Vaccines (1 of 3 - 19+ 3-dose series) 1991 Cholesterol Screening (Lipid Panel) 04/28/2022 Colorectal Cancer Screening: Colonoscopy 04/28/2022 Depression Screening 04/28/2022 HIV Screening 04/28/2022 Hepatitis C Screening 04/28/2022 Social Influencers of Health Screening 04/28/2022 Pneumococcal Vaccine: 50+ Ye ars (1 of 1 - PCV) 2022 Zoster Vaccines (1 of 2) 2022 COVID-19 Vaccine ( - 2023-2 5 season) 2024 DTaP,Tdap,and Td Vaccines (2 - Td or Tdap) 12/24/2024 12/24/2014 Influenza Vaccine (Season Ended) 2025 Hypertension/CHF/CAD Annual BMP Blood Test 2025 2024 [...] Procedure Name Priority Date/Time Associated Diagnosis Comments COMPREHENSIVE METABOLIC PANEL STAT 2024 9:04 AM EST from Last 3 Months or Most Recently Relevant to Health Maintenance Results * (ABNORMAL) Comprehensive metabolic panel (2024 9:04 AM EST) Sodium 137 133 - 145 mmol/L LAB CHEMISTRY METHOD 2024 10:11 AM [facility] Potassium 4.0 3.5 - 5.5 mmol/L LAB CHEMISTRY METHOD 2024 10:11 AM [facility] Chloride 105 96 - 110 mmol/L LAB CHEMISTRY METHOD 2024 10:11 AM [facility] CO2 25 21 - 32 mmol/L LAB CHEMISTRY METHOD 2024 10:11 AM [facility] Anion Gap 7 3 - 11 LAB CHEMISTRY METHOD 2024 10:11 AM [facility] Glucose 85 70 - 100 mg/dL LAB CHEMISTRY METHOD 2024 10:11 AM [facility] BUN 9 5 - 25 mg/dL LAB CHEMISTRY METHOD 2024 10:11 AM [facility] Creatinine 1.04 0.70 - 1.30 mg/dL LAB CHEMISTRY METHOD 2024 10:11 AM [facility] eGFR 86 >=60 mL/min/1. 73m2 LAB CHEMISTRY METHOD 2024 10:11 AM [facility] Comment:Calculation based on the??Chronic Kidney Disease Epidemiology Collaboration (CKD-EPI) equation refit??without adjustment for race. BUN/Creatinine Ratio 8.7 LAB CHEMISTRY METHOD 2024 10:11 AM [facility] Calcium 8.6 8.5 - 10.5 mg/dL LAB CHEMISTRY METHOD 2024 10:11 AM [facility] AST (SGOT) 73(H) 10 - 42 unit/L LAB CHEMISTRY METHOD 2024 10:11 AM [facility] ALT (SGPT) 57 10 - 60 unit/L LAB CHEMISTRY METHOD 2024 10:11 AM EST [facility] Alkaline Phosphatase 135(H) 42 - 121 unit/L LAB CHEMISTRY METHOD 2024 10:11 AM EST [facility] Total Protein 7.3 6.0 - 8.0 g/dL LAB CHEMISTRY METHOD 2024 10:11 AM EST [facility] Albumin 3.9 3.2 - 5.0 g/dL LAB CHEMISTRY METHOD 2024 10:11 AM EST [facility] Total Bilirubin 0.6 0.0 - 1.4 mg/dL LAB CHEMISTRY METHOD 2024 10:11 AM EST [facility] Blood Venous blood specimen / Unknown Venipuncture / Unknown 2024 9:04 AM EST 2024 9:40 AM EST [facility] Sonu Skinner DO LAB BLOOD ORDERABLES Keshia l Result [facility] [address] [place] [address], from Last 3 Months or Most Recently Relevant to Health Maintenance Insurance MEDICAID - [place] Care Teams Consulting Manager Relationship Specialty Start Date End Date Nitin Taylor MD [address] [place] [address] Dr [address] [facility] [place] [address] PCP - General Internal Medicine 03/16/21
--- OUTSIDE RECORDS SUMMARY | 2024-09-27 16:42 | XMS_ITS | Clinical Summary ---
Author Organization [facility] Address [address] [place] [address] Care Team Providers Care Service Order Dispatcher Name Role Phone Keyanna Merino HOLLIS Primary Care Provider [phone] Source Comments PLEASE NOTE, if this patient [...] Overview (03/14/2017): X ray done 03/04/17 @ [facility] - Mild Degenerative changes Heroin abuse ([facility]) 11/12/2016 Overview (11/12/2016): Seen in ER [facility] [...] Plan of Treatment Not on file Insurance [facility] PLAN Member Subscriber Plan / Payer (Ef fective 2015-Present) Name:McwilliamsKeyur Yanezto Relation to Subscriber:Self Name:Mcwilliams Lai Payer ID:[id number] Group ID:[id number] Type:Medicaid Address: [facility] [address] [place] [address] Care Teams Service Order Dispatcher Relationship Specialty Start Date End Date Keyanna Merino FNP [address] [place] [address] PCP - General Family Medicine, FREIGHT UNLOADER 08/07/15
== END 2024-09-27 15:17 | disposition home or self-care (01) ==
LOC: HO.HMCH 14:43
PROVIDERS: PCP Internal Medicine; Visit Provider Internal Medicine
DX: I83.11 Varicose veins of right lower extremity with inflammation (principal); I83.12 Varicose veins of left lower extremity with inflammation

== ENCOUNTER → 2024-09-27 14:42 | Outpatient (BNVA) | payer OTHER, SELFPAY | PROVIDERS: PCP Internal Medicine; Visit Provider Internal Medicine | DX: I83.11 Varicose veins of right lower extremity with inflammation (principal); I83.12 Varicose veins of left lower extremity with inflammation | CPT/HCPCS: 96127; 99212 ==

== ENCOUNTER 2024-10-05 12:09 | Outpatient (AMB) | payer OTHER, SELFPAY ==
--- NOTE | 2024-10-05 12:22 | MHC.OFFWIV ---
Intake Vital Signs 10/05/24 12:35 Height 5 ft 6 in Weight 190 lb BMI 30.7 BP 124/80 Blood Pressure Location Lt brachial Position Sitting Respiration 16 Pulse 66 Pulse Source Pulse Oximeter Temp 98.0 F Temp Source Oral Pulse Oximetry (%) 98 Oxygen Delivery Method Room Air Intake Visit Reasons: EP-lt foot swollen & pain Intake Note: Pt is here today c/o Lt heel pain Patient Tobacco Use Status: Never used Tobacco Allergies No Known Allergies [No Known Allergies*] Allergy (Verified 10/05/24 12:36) Medication List - Last Reconciled 10/05/24 by Chris Rondon MD blood pressure monitor (Blood Pressure Kit) As directed [compression stockings As directed] omeprazole 20 mg PO DAILY HPI EP-lt foot swollen & pain HPI Details History - The patient is a 54-year-old male presenting with foot pain. Left - The patient reports experiencing plantar fasciitis, characterized by pain at the bottom of the foot. - The foot pain began approximately three years ago. - The patient works in a [employer], a job that requires standing on his feet for extended periods, which contributes to his condition. - The patient has previously attempted to alleviate the pain with support footwear that targets the heel, but these have not provided relief. - The patient's symptoms are described as persistent and associated with prolonged standing without adequate arch support. Problem List - Plantar Fasciitis left Patient Instructions - Purchase and wear [employer] brand shoes for better arch support. - Take the prescribed medications with food as directed. - Allow one week off from work to manage foot pain, with a note provided for work absence. - If pain persists or worsens, consider further evaluation with a healthcare provider. Review of Systems - General: No fever no chills - Neurological: No headaches no dizziness - Ear nose throat: No sore throat no hearing difficulty no ear pain - Cardiovascular: No syncope, no chest pain, no palpitations - Gastrointestinal: No nausea vomiting or diarrhea Physical Exam General: No acute distress HEENT: No acute findings Neck: Supple Respiratory system: Able to talk in full sentences Gastrointestinal: No pain Extremities: Pain in the bottom of left foot, over plantar fascia with pressure, able to move all toes, ankle with full range of motion GENERAL INTERNIST AND PHYSICIAN LEADER: Alert awake oriented x3 motor sensory intact Skin: Normal turgor [facility] Medical History Polysubstance abuse Hepatitis C antibody positive in blood Overweight (BMI 25.0-29.9) Surgical History History of esophagogastroduodenoscopy (EGD) Family History Mother Diabetes Father Heart attack Social History Housing: Apartment Alcohol intake: current Alcohol intake frequency: 3 or more drinks per day Comment: QD 6 pack Patient Tobacco Use Status: Never used Tobacco Years Smoked: [id number] e-Cigarette/Vaping Use: Never Used Second Hand Smoke Exposure: No service: No Current occupational status: employed Cognitive needs: No Hearing needs: No Vision needs: Yes Physical Exam Vital Signs: Last Vital Signs Temp 98.0 F 10/05/24 12:35 Pulse 66 10/05/24 12:35 Resp 16 10/05/24 12:35 BP 124/80 10/05/24 12:35 Pulse Ox 98 10/05/24 12:35 Oxygen Delivery Method Room Air 10/05/24 12:35 BMI result Body Mass Index 30.7 Assessment & Plan Assessment & Plan (1) Plantar fasciitis, left: Code(s): M72.2 - Plantar fascial fibromatosis Plan History - The patient is a 54-year-old male presenting with foot pain. Left - The patient reports experiencing plantar fasciitis, characterized by pain at the bottom of the foot. - The foot pain began approximately three years ago. - The patient works in a [employer], a job that requires standing on his feet for extended periods, which contributes to his condition. - The patient has previously attempted to alleviate the pain with support footwear that targets the heel, but these have not provided relief. - The patient's symptoms are described as persistent and associated with prolonged standing without adequate arch support. Problem List - Plantar Fasciitis left Patient Instructions - Purchase and wear [employer] brand shoes for better arch support. - Take the prescribed medications with food as directed. - Allow one week off from work to manage foot pain, with a note provided for work absence. - If pain persists or worsens, consider further evaluation with a healthcare provider. Medications: New diclofenac sodium 75 mg PO BID 10 days 20 tabs 0RF pain prednisone 20 mg PO DAILY 5 days 5 tabs 0RF Coding Level of Care Code Est Pt Level 3 (29777) Diagnoses Plantar fasciitis, left M72.2
--- OUTSIDE RECORDS SUMMARY | 2024-10-05 12:30 | XMS_ITS | Clinical Summary ---
Author Organization [facility] Address [address] [place] [address] Care Team Providers Care Forklift Material Handler Name Role Phone Keyanna Merino HOLLIS Primary Care Provider [phone] Source Comments PLEASE NOTE, if this patient [...] Overview (03/14/2017): X ray done 03/04/17 @ [facility] - Mild Degenerative changes Heroin abuse ([facility]) 11/12/2016 Overview (11/12/2016): Seen in [...] Plan of Treatment Not on file Insurance [facility] PLAN Member Subscriber Plan / Payer (Ef fective 2015-Present) Name:McwilliamsKeyur Yanezto Relation to Subscriber:Self Name:Mcwilliams Lai Payer ID:[id number] Group ID:[id number] Type:Medicaid Address: [facility] [address] [place] [address] Care Teams Forklift Material Handler Relationship Specialty Start Date End Date Keyanna Merino FNP [address] [place] [address] PCP - General Family Medicine, SOFTWARE INSTALLER 08/07/15
--- OUTSIDE RECORDS SUMMARY | 2024-10-05 12:30 | XMS_ITS | Clinical Summary ---
Author Organization [facility] Address [address] [place] [address] Phone Care Team Providers Care Rug Repairer Name Role Phone Nitin Taylor MD Primary Care Provider [phone] Allergies No known active allergies Medical History [...] LAB CHEMISTRY METHOD 2024 10:11 AM EST [facility] Alkaline Phosphatase 135(H) 42 - 121 unit/L LAB CHEMISTRY METHOD 2024 10:11 AM EST [facility] Total Protein 7.3 6.0 - 8.0 g/dL LAB CHEMISTRY METHOD 2024 10:11 AM EST [facility] Albumin 3.9 3.2 - 5.0 g/dL LAB CHEMISTRY METHOD 2024 10:11 AM EST [facility] Total Bilirubin 0.6 0.0 - 1.4 mg/dL LAB CHEMISTRY METHOD 2024 10:11 AM EST [facility] Blood Venous blood specimen / Unknown Venipuncture / Unknown 2024 9:04 AM EST 2024 9:40 AM EST [facility] Sonu Skinner DO LAB BLOOD ORDERABLES Keshia l Result [facility] [address] [place] [address], from Last 3 Months or Most Recently Relevant to Health Maintenance Insurance MEDICAID - [place] Care Teams Rug Repairer Relationship Specialty Start Date End Date Nitin Taylor MD [address] [place] [address] Dr [address] [facility] [place] [address] PCP - General Internal Medicine 03/16/21
[2024-10-05 12:35] VITALS: BP 124/80; PULSE 66; RESP 16; TEMP 36.7; O2SAT 98; BMI 30.7
== END 2024-10-05 13:31 | disposition home or self-care (01) ==
PROVIDERS: PCP Internal Medicine; Visit Provider Internal Medicine
DX: M72.2 Plantar fascial fibromatosis (principal)

== ENCOUNTER → 2024-10-05 12:09 | Outpatient (BNVA) | payer OTHER, SELFPAY | PROVIDERS: PCP Internal Medicine; Visit Provider Internal Medicine | DX: M72.2 Plantar fascial fibromatosis (principal) | CPT/HCPCS: 99212 ==

== ENCOUNTER → 2024-10-19 12:54 | Outpatient (BNVA) | payer OTHER, SELFPAY | PROVIDERS: PCP Internal Medicine; Visit Provider Nurse Practitioner ==

== ENCOUNTER 2024-10-26 15:02 | Outpatient (AMB) | payer OTHER, SELFPAY ==
--- OUTSIDE RECORDS SUMMARY | 2024-10-26 15:05 | XMS_ITS | Clinical Summary ---
Author Organization [facility] Address [address] [place] [address] Phone Care Team Providers Care Health Specialist Name Role Phone Nitin Taylor MD Primary Care Provider [phone] Allergies No known active allergies Medical History [...] mmol/L LAB CHEMISTRY METHOD 2024 10:11 AM [facility] Potassium 4.0 3.5 - 5.5 mmol/L LAB CHEMISTRY METHOD 2024 10:11 AM [facility] Chloride 105 96 - 110 mmol/L LAB CHEMISTRY METHOD 2024 10:11 AM [facility] CO2 25 21 - 32 mmol/L LAB CHEMISTRY METHOD 2024 10:11 AM [facility] Anion Gap 7 3 - 11 LAB CHEMISTRY METHOD 2024 10:11 AM [facility] Glucose 85 70 - 100 mg/dL LAB CHEMISTRY METHOD 2024 10:11 AM [facility] BUN 9 5 - 25 mg/dL LAB CHEMISTRY METHOD 2024 10:11 AM [facility] Creatinine 1.04 0.70 - 1.30 mg/dL LAB CHEMISTRY METHOD 2024 10:11 AM [facility] eGFR 86 >=60 mL/min/1. 73m2 LAB CHEMISTRY METHOD 2024 10:11 AM [facility] Comment:Calculation based on the??Chronic Kidney Disease Epidemiology Collaboration (CKD-EPI) equation refit??without adjustment for race. BUN/Creatinine Ratio 8.7 LAB CHEMISTRY METHOD 2024 10:11 AM [facility] Calcium 8.6 8.5 - 10.5 mg/dL LAB CHEMISTRY METHOD 2024 10:11 AM [facility] AST (SGOT) 73(H) 10 - 42 unit/L LAB CHEMISTRY METHOD 2024 10:11 AM [facility] ALT (SGPT) 57 10 [...] 9:04 AM EST 2024 9:40 AM EST [facility] Sonu Skinner DO LAB BLOOD ORDERABLES Keshia l Result [facility] [address] [place] [address], from Last 3 Months or Most Recently Relevant to Health Maintenance Insurance [place] - [place] Care Teams Health Specialist Relationship Specialty Start Date End Date Nitin Taylor MD [address] [place] [address] Dr [address] [facility] [place] [address] PCP - General Internal Medicine 03/16/21
[2024-10-26 15:09] VITALS: BP 132/70; PULSE 78; O2SAT 98; BMI 30.7
--- NOTE | 2024-10-26 15:09 | MHC.PC.OV ---
Vital Signs 10/26/24 15:09 Height 5 ft 6 in Weight 190 lb BMI 30.7 BP 132/70 Blood Pressure Location Lt brachial Position Sitting Pulse 78 Pulse Source Pulse Oximeter Pulse Oximetry (%) 98 Oxygen Delivery Method Room Air Intake Visit Reasons: gerd Service Manager Required: Yes Service Manager Language: Setswana Allergies No Known Allergies [No Known Allergies*] Allergy (Verified 10/26/24 15:09) Tobacco use date assessed: 07/26/24 Dental Screening Dental Screen Date: 07/26/24 HPI gerd HPI Details Matt [id number] L foot pain PFSH Medical History (Updated 10/26/24 @ 16:15 by Nitin Taylor MD) LFT elevation Tinea pedis Annual physical exam Colon cancer screening Tinea cruris COVID-19 Left foot pain Ankle pain, left Varicose veins of ankle Polysubstance abuse Hepatitis C antibody positive in blood Overweight (BMI 25.0-29.9) Surgical History History of esophagogastroduodenoscopy (EGD) Family History Mother Diabetes Father Heart attack Social History Housing: Apartment Alcohol intake: current Alcohol intake frequency: 3 or more drinks per day Comment: QD 6 pack Patient Tobacco Use Status: Never used Tobacco Tobacco use type: Cigarette Years Smoked: [id number] e-Cigarette/Vaping Use: Never Used Second Hand Smoke Exposure: No service: No Current occupational status: employed Cognitive needs: No Hearing needs: No Vision needs: Yes Questionnaire PHQ-9 Over the last 2 weeks, how often have you been bothered by any of the following problems? 1. Little interest or pleasure in doing things: not at all 2. Feeling down, depressed, or hopeless: not at all 3. Trouble falling or staying asleep, or sleeping too much: not at all 4. Feeling tired or having little energy: not at all 5. Poor appetite or overeating: not at all 6. Feeling bad about yourself - or that you are a failure or have let yourself or your family down: not at all 7. Trouble concentrating on things, such as reading the newspaper or watching television: not at all 8. Moving or speaking so slowly that other people could have noticed. Or the opposite - being so fidgety or restless that you have been moving around a lot more than usual: not at all 9. Thoughts that you would be better off or of hurting yourself in some way: not at all Total score: 0 Depression Screening Interpretation: Negative Depression Screening Done: Yes [id number] - PHQ-9 Billing: Yes Source: Developed by Drs. Darrell Harry, Jersey Steele and colleagues, with an educational carolina from [employer]. Thrive Questionnaire Date Thrive assessed: 09/27/24 I am a: Patient What is your living situation today?: I have a place to live, but I am worried about losing it in the future Within the past 12 months, did the food you bought not last and you didn't have the money to get more?: I choose not to answer this question Within the past 12 months, did you worry whether your food would run out before you got money to buy more?: I choose not to answer this question Do you have trouble paying for medicines?: No Do you have trouble getting transportation to medical appointments?: No Do you have trouble paying your heating and electricity bill?: No Do you have trouble taking care of your child, family member or friend?: No Do you have trouble with day-to-day activities such as bathing, preparing meals, shopping, managing finances, etc.?: No Are you currently unemployed and looking for a job?: No Are you interested in more education?: No Please select the resources that you would like help with: None Currently or been in a relationship where the following occur: No concerns reported THRIVE Score: 1 AUDIT C Alcohol Use Questionnaire (AUDIT-C) 1. How often do you have a drink containing alcohol?: Never 3. How often do you have six or more drinks on one occasion?: Never Total Score: 0 YOSEF-7 AMB Questionnaire YOSEF-7 Date YOSEF - 7 assessed: 07/26/24 Source: Developed by Drs. Darrell Harry, Shira Vicente, Jersey Tinajero and colleagues, with an educational carolina from [employer]. Physical exam (Primary Care) Vital Signs: Last Vital Signs Pulse 78 10/26/24 15:09 BP 132/70 10/26/24 15:09 Pulse Ox 98 10/26/24 15:09 Oxygen Delivery Method Room Air 10/26/24 15:09 BMI result Body Mass Index 30.7 Tobacco/Smoking Status: Tobacco use Status Tobacco use date assessed 07/26/24 10/26/24 15:09 Patient Tobacco Use Status Never used Tobacco 10/26/24 15:09 Tobacco use type Cigarette 10/26/24 15:09 e-Cigarette/Vaping Use Never Used 10/26/24 15:09 PHQ-9: PHQ-9 Score PHQ-9: Total score 0 10/26/24 16:18 Depression Screening Interpretation: Negative Thrive Assessment: Date of Thrive Assessment Date Thrive assessed 09/27/24 10/26/24 15:09 Currently or been in a relationship where the following occur: No concerns reported Const General: alert; No acute distress Eyes Conjunctivae: conjunctivae normal Resp Auscultation: clear to auscultation bilaterally Cardio Rate: regular rate Rhythm: regular rhythm GI Inspection: Yes normal to inspection Extrem General: Yes normal to inspection and No edema Coding Level of Care Code Est Pt Level 4 (88034) Complex EM visit Add On G2211 Diagnoses Hepatic steatosis K76.0 Obesity (BMI 30-39.9) E66.9 Impaired fasting blood sugar R73.01 GERD (gastroesophageal reflux disease) K21.9 Plantar fasciitis, left M72.2 Varicose veins of both lower extremities with inflammation I83.11; I83.12 Additional Codes PHQ-9 - 76294 - PHQ-9 Billing: Yes ([id number]) Assessment & Plan Assessment & Plan (1) Hepatic steatosis: Code(s): K76.0 - Fatty (change of) liver, not elsewhere classified Category: Medical Plan: Low-fat diet and exercise (2) Obesity (BMI 30-39.9): Code(s): E66.9 - Obesity, unspecified Category: Medical Plan: diet and exercise (3) Impaired fasting blood sugar: Code(s): R73.01 - Impaired fasting glucose Category: Medical Plan: Decrease the amount of carbohydrate intake, pasta, bread, rice and potatoes are all sugar and that is aside from all the sweet stuff, remember that fruits are good but they are Sweet also. (4) GERD (gastroesophageal reflux disease): Code(s): K21.9 - Gastro-esophageal reflux disease without esophagitis Category: Medical Plan: Avoid the foods that causes that usually spicy foods, tomato products, juices, coffee, soda and foods that your sensitive to. After eating do not lie down, allow 3-4 hours before in lie down. And keep the head of bed above 30 degrees to avoid the acid from going up. (5) Plantar fasciitis, left: Code(s): M72.2 - Plantar fascial fibromatosis Category: Medical Plan: Discussed about exercises and podiatry referral (6) Varicose veins of both lower extremities with inflammation: Code(s): I83.11 - Varicose veins of right lower extremity with inflammation; I83.12 - Varicose veins of left lower extremity with inflammation Category: Medical Plan: When sitting down elevate the legs, exercise, and support stockings Plan History of Present Illness The patient is a 54-year-old male presenting for a follow-up visit regarding the management of chronic conditions including obesity, hepatitis C, and hepatic steatosis. His past medical history includes a history of alcohol abuse, GERD, plantar fasciitis, and varicose veins which were assessed without findings of significant venous insufficiency. Recent laboratory tests from July highlight mild anemia, normal renal function, and normal electrolytes, with a hemoglobin A1c of 5.7 indicating potential glucose intolerance. An abdominal ultrasound in 2021 confirmed hepatic steatosis. He has implemented a low-fat diet and exercise regimen for health maintenance, particularly addressing his obesity and diabetes risk. The impact of prior occupational demands on his musculoskeletal health was discussed, linking plantar fasciitis management and need for podiatry referral. Health Maintenance - Low-fat diet and regular exercise for weight management - Discussion on diabetes management and prevention plan - Review of reflux management plan through lifestyle modifications Social History - History of working in occupations requiring heavy lifting, potentially affecting lower extremities - Implementation of lifestyle changes including a low-fat diet and regular exercise Review of Systems - Gastrointestinal: Reports history of gastroesophageal reflux disease - Musculoskeletal: Reports plantar fasciitis; discussed occupational impact on lower extremities Physical Exam Results - Labs: Mild anemia noted in July; normal renal function and electrolytes. - Tests: Hemoglobin A1c of 5.7 indicating potential glucose intolerance; LDL cholesterol of 116. - Imagin ultrasound revealed hepatic steatosis. Plan 1. 7. The mild anemia will be observed for changes. Adherence to a low-fat diet and exercise is emphasized. For GERD, dietary adjustments and lifestyle changes are advised. A podiatry referral is warranted to evaluate the effects of occupational activities on lower extremities, particularly for plantar fasciitis. Observations from the evaluation of varicose veins do not necessitate vascular intervention.: Patient was informed and verbally consented to the use of an ambient scribe for clinic note documentation during this visit. Discussion Notes I discussed the management of the patient's chronic conditions, emphasizing the importance of lifestyle modifications in managing obesity and preventing progression towards diabetes. We reviewed current laboratory findings including the mild anemia and the normal range of renal function and electrolytes. The patient was advised on maintaining a low-fat diet and engaging in regular exercise, which are crucial for managing obesity and controlling GERD symptoms. I also provided information on addressing plantar fasciitis and discussed the results of the varicose veins evaluation. It was understood that a podiatry referral would be beneficial for ongoing concerns related to musculoskeletal health. Patient Instructions - Follow a low-fat diet and engage in regular physical activity - Continue lifestyle modifications for GERD management - Observe for any symptoms indicative of worsened anemia - Attend podiatry evaluation for foot and lower extremity concerns - Monitor blood sugar levels as discussed Orders: Referrals Podiatry Referral M72.2 - Plantar fascial fibromatosis
== END 2024-10-26 17:13 | disposition home or self-care (01) ==
LOC: HO.HMCH 15:03
PROVIDERS: PCP Internal Medicine; Visit Provider Internal Medicine
DX: K76.0 Fatty (change of) liver, not elsewhere classified (principal); E66.9 Obesity, unspecified; Z68.30 Body mass index [BMI] 30.0-30.9, adult; R73.01 Impaired fasting glucose; K21.9 Gastro-esophageal reflux disease without esophagitis; M72.2 Plantar fascial fibromatosis; I83.11 Varicose veins of right lower extremity with inflammation; I83.12 Varicose veins of left lower extremity with inflammation

== ENCOUNTER → 2024-10-26 15:02 | Outpatient (BNVA) | payer OTHER, SELFPAY | PROVIDERS: PCP Internal Medicine; Visit Provider Internal Medicine | DX: K21.9 Gastro-esophageal reflux disease without esophagitis (principal); K76.0 Fatty (change of) liver, not elsewhere classified; E66.9 Obesity, unspecified; R73.01 Impaired fasting glucose; M72.2 Plantar fascial fibromatosis; I83.11 Varicose veins of right lower extremity with inflammation; I83.12 Varicose veins of left lower extremity with inflammation | CPT/HCPCS: 96127; 99212 ==

== ENCOUNTER 2024-12-14 14:21 | Outpatient (AMB) | payer OTHER, SELFPAY ==
--- NOTE | 2024-12-14 14:23 | MHC.OFFVIS ---
Vital Signs 12/14/24 14:29 Height 5 ft 6 in Weight 185 lb 3.013 oz BMI 29.9 BP 149/88 H Blood Pressure Location Lt brachial Position Sitting Pulse 83 Intake Visit Reasons: GERD mgmt. R/S due to provider running late Intake Note: Lai presents in the office as a GERD appt. CC: States that he is still having the acid reflux and states that he takes his meds for the condition and omeprazole seems to help. Manager Research And Development Required: Yes Manager Research And Development Name: Sunil [id number] Allergies No Known Allergies (No Known Allergies*) Allergy (Verified 10/26/24 15:09) HPI HPI GERD mgmt. R/S due to provider running late: Details: 54-year-old male here for initial evaluation of GERD. He is referred by Chris Rondon. PMX Obesity Alcohol abuse History of hepatitis-C infection GERD Impaired fasting blood glucose History of polysubstance abuse * SURGICAL HISTORY EGD-2019? [facility] * ALLERGIES: NKDA * [facility] LABS: Laboratory Tests 08/07/24 07:44 WBC 4.7 L Hgb 13.9 L Hct 43.4 Estimated GFR > 60 Total Bilirubin 0.5 AST 45 H ALT 23 Alkaline Phosphatase 82 TSH 1.64 Free T4 0.99 Laboratory Tests 08/22/20 10/30/21 08:38 07:19 Hep Bs Antigen Negative Hep Bs Antibody NONREACTIVE Hep B Core Total Ab Nonreactive Hepatitis C Ab (EIA) Reactive H HCV RNA (PCR) IUs/ml <15 NOT DETECTED HCV RNA PCR log IUs/ml <1.18 NOT DETECTED TODAY'S VISIT [facility] #[id number] He is here today with his who is supportive. He tells me that he was having dyspepsia and burning in his throat and he was seen by Haley and told he had GERD. He was rx'd omeprazole 20mg and this has helped his sx. If he does not take it every day he will have HB and stomach discomfort. He drinks about 6 12 oz beers a day. There is no known FHX of esophageal or stomach cancer. No FHX Of GB disease. He did not understand that he was also to have a colonoscopy for CRC screening. His brother has suffered from CRC at age 60's and is still living. He was dx'ed about a year ago. No bowel or other upper GI problems; no dysphagia. He is naive to anesthesia and sedation. He denies any cardiac or respiratory problems. He has a hx of Hepatitis C with a negative viral load. His brother recently was dx'ed with CRC. [facility] Medical History (Updated 12/14/24 @ 16:13 by MOHSEN Whelan) LFT elevation Tinea pedis Annual physical exam Colon cancer screening Tinea cruris COVID-19 Left foot pain Ankle pain, left Varicose veins of ankle Polysubstance abuse Hepatitis C antibody positive in blood Overweight (BMI 25.0-29.9) Surgical History History of esophagogastroduodenoscopy (EGD) Family History (Updated 12/14/24 @ 14:32 by CLAIRE Neumann) Mother Diabetes Father Heart attack Brother Colon cancer Social History Housing: Apartment Alcohol intake: current Alcohol intake frequency: 3 or more drinks per day Comment: QD 6 pack Patient Tobacco Use Status: Never used Tobacco Years Smoked: [id number] e-Cigarette/Vaping Use: Never Used Second Hand Smoke Exposure: No service: No Current occupational status: employed Cognitive needs: No Hearing needs: No Vision needs: Yes Review of Systems Const Denies fatigue, Denies fever(s), Denies night sweats, Denies poor appetite and Denies weight loss Eyes Details: glasses Reports requires corrective lenses ENT Reports Normal hearing present, Denies dental pain, Denies dysphagia, Denies hearing loss, Denies mouth pain, Denies odynophagia, Denies throat swelling, Denies tongue swelling and Reports other (Dentition adequate) Card Reports no additional complaints Resp Reports no additional complaints GI Details: Denies abdominal pain, Denies melena, Denies bloating, Denies hematochezia, Denies constipation, Denies GI cramping, Denies dysphagia, Denies excessive flatus, Denies early satiety, Reports heartburn, Denies diarrhea, Denies nausea, Denies odynophagia, Denies vomiting and Denies hematemesis Skin/Breast Denies pruritus, Denies lesions, Denies rash and Denies jaundice Neuro Reports Normal hearing present and Denies Abnormal speech present Endo Denies fatigue Aller/Immun Denies throat swelling and Denies tongue swelling Physical Exam Const General: cooperative, no acute distress, well developed and well groomed Nutritional Appearance: well nourished and obese centrally obese Orientation/consciousness: oriented to person, oriented to place and oriented to time Limitations: language barrier HEENT Head: Yes normocephalic and Yes atraumatic Eyes General: appearance normal, both eyes and all related structures Pupils: Equal, round and reactive pupils present Neck Neck: Yes normal visual inspection and Yes no lymphadenopathy Thyroid: Thyroid normal Resp Effort & Inspection: normal respiratory effort and able to speak in complete sentences Auscultation: clear to auscultation bilaterally Cardio Rate: regular rate Rhythm: regular rhythm Heart sounds: Normal, physiologic split S2 sound present Peripheral pulses: radial pulses present and posterior tibial pulses present GI Inspection: No distended, No Abdominal panniculus present and Yes obesity Palpation (GI): Soft to palpation, nontender, no guarding, not rigid and No hepatosplenomegaly present Percussion: Yes normal to percussion Auscultation: normal bowel sounds Rectal Exam - Male: Yes deferred Skin General skin exam: no rashes or lesions noted, turgor normal, skin not dry, no jaundice, No spider nevi and no striae Rashes: no rashes Nails: normal Neuro General: oriented to person, oriented to place and oriented to time Cranial nerves: Yes Equal, round and reactive pupils present and Yes Normal hearing present Speech: No Abnormal speech present Extrem General: Yes normal to inspection, No clubbing, No cyanosis and No edema Psych Appearance: grossly normal and well kempt Mental Status: mental status grossly normal Speech and movement: Normal speech and movement present Affect: normal affect Attitude: cooperative Thought process: Normal thought process present and not confabulating Thought content: Normal thought content present Insight: Limited insight present (Psych) Judgement: Limited judgement present (Psych) Assessment & Plan Assessment & Plan (1) GERD (gastroesophageal reflux disease): Code(s): K21.9 - Gastro-esophageal reflux disease without esophagitis Category: Medical (2) Family history of colon cancer: Comment: Brother 60 s Code(s): Z80.0 - Family history of malignant neoplasm of digestive organs Category: Medical (3) Pre-op examination: Code(s): Z01.818 - Encounter for other preprocedural examination Category: Medical (4) Hepatitis C antibody positive in blood: Code(s): R76.8 - Other specified abnormal immunological findings in serum Category: Medical Plan [facility] #[id number] He is here today with his who is supportive. He tells me that he was having dyspepsia and burning in his throat and he was seen by Haley and told he had GERD. He was rx'd omeprazole 20mg and this has helped his sx. If he does not take it every day he will have HB and stomach discomfort. He drinks about 6 12 oz beers a day. There is no known FHX of esophageal or stomach cancer. No FHX Of GB disease. He did not understand that he was also to have a colonoscopy for CRC screening. His brother has suffered from CRC at age 60's and is still living. He was dx'ed about a year ago. No bowel or other upper GI problems; no dysphagia. He is naive to anesthesia and sedation. He denies any cardiac or respiratory problems. He has a hx of Hepatitis C with a negative viral load. His brother recently was dx'ed with CRC. Orders: Orders EGD/[place] Combo - GI Use Only Today K21.9 - Gastro-esophageal reflux disease without esophagitis Medications: New bisacodyl (Dulcolax (bisacodyl)) 10 mg (2 x 5 mg) PO BEDTIME 4 tabs 0RF 2 days peg 3350-electrolytes 236-22.74-6.74 -5.86 gram (Golytely) until fecal effluent is clear; do not exceed a total volume of 2,000 mL 240 mL PO Q10M 4,000 mL 0RF 1 day Z12.11 - Encounter for screening for malignant neoplasm of colon omeprazole 20 mg PO DAILY 30 caps 6RF K21.9 - Gastro-esophageal reflux disease without esophagitis Coding Level of Care Code New Pt Level 3 (04573) Diagnoses GERD (gastroesophageal reflux disease) K21.9 Family history of colon cancer Z80.0 Pre-op examination Z01.818 Hepatitis C antibody positive in blood R76.8
--- OUTSIDE RECORDS SUMMARY | 2024-12-14 14:24 | XMS_ITS | Clinical Summary ---
Author Organization [facility] Address [address] [place] [address] Phone Care Team Providers Care Low Vision Therapist Name Role Phone Nitin Taylor MD Primary Care Provider [phone] Allergies No known active allergies Medical History [...] 82 2024 9:20 AM EST Temperature 36.4 C (97.6 F) 2024 8:37 AM EST Respiratory Rate 17 2024 9:20 AM EST Oxygen Saturation 96% 2024 9:20 AM EST Inhaled Oxygen Concentration - - Weight 87 kg (191 lb 11.2 oz) 2024 8:37 AM EST Height 167.6 cm (5' 6 ) 2024 8:37 AM EST Body Mass Index 30.94 2024 8:37 AM EST Plan of Treatment Upcoming Encounters Date Type Department Care Team ([facility] st Contact Info) Description 01/22/2025 1:45 PM EDT Consult Orthopedic Surgery - [place] [address] [phone] Baldo Rogers, DPM [address] [address] Health Maintenance Due Date Last Done Comments [...] Vaccine (1 - 2023-2 5 season) 2024 DTaP,Tdap,and Td Vaccines (2 - Td or Tdap) 12/24/2024 12/24/2014 Influenza Vaccine (#1) 2025 Hypertension/CHF/CAD Annual BMP Blood Test 2025 [...] mmol/L LAB CHEMISTRY METHOD 2024 10:11 AM [facility] Potassium 4.0 3.5 - 5.5 mmol/L LAB CHEMISTRY METHOD 2024 10:11 AM [facility] Chloride 105 96 - 110 mmol/L LAB CHEMISTRY METHOD 2024 10:11 AM [facility] CO2 25 21 - 32 mmol/L LAB CHEMISTRY METHOD 2024 10:11 AM [facility] Anion Gap 7 3 - 11 LAB CHEMISTRY METHOD 2024 10:11 AM [facility] Glucose 85 70 - 100 mg/dL LAB CHEMISTRY METHOD 2024 10:11 AM [facility] BUN 9 5 - 25 mg/dL LAB CHEMISTRY METHOD 2024 10:11 AM [facility] Creatinine 1.04 0.70 - 1.30 mg/dL LAB CHEMISTRY METHOD 2024 10:11 AM [facility] eGFR 86 >=60 mL/min/1. 73m2 LAB CHEMISTRY METHOD 2024 10:11 AM [facility] Comment:Calculation based on the Chronic Kidney Disease Epidemiology Collaboration (CKD-EPI) equation refit without adjustment for race. BUN/Creatinine Ratio 8.7 LAB CHEMISTRY METHOD 2024 10:11 AM [facility] Calcium 8.6 8.5 - 10.5 mg/dL LAB CHEMISTRY METHOD 2024 10:11 AM [facility] AST (SGOT) 73(H) 10 - 42 unit/L LAB CHEMISTRY METHOD 2024 10:11 AM [facility] ALT (SGPT) 57 10 - 60 unit/L LAB CHEMISTRY METHOD 2024 10:11 AM [facility] Alkaline Phosphatase 135(H) 42 - 121 unit/L LAB CHEMISTRY METHOD 2024 10:11 AM [facility] Total Protein 7.3 6.0 - 8.0 g/dL LAB CHEMISTRY METHOD 2024 10:11 AM EST [facility] Albumin 3.9 3.2 - 5.0 g/dL LAB CHEMISTRY METHOD 2024 10:11 AM [facility] Total Bilirubin 0.6 0.0 - 1.4 mg/dL LAB CHEMISTRY METHOD 2024 10:11 AM [facility] Blood Venous blood specimen / Unknown Venipuncture / Unknown 2024 9:04 AM EST 2024 9:40 AM EST Pritesh Sonu Skinner DO LAB BLOOD ORDERABLES Keshia l Result [facility] [address] [place] [address], from Last 3 Months or Most Recently Relevant to Health Maintenance Insurance MEDICAID - [place] [facility] Care Teams Low Vision Therapist Relationship Specialty Start Date End Date Nitin Taylor MD [address] [place] [address] [address] [facility] [place], [place] [phone] PCP - General Internal Medicine 03/16/21
--- OUTSIDE RECORDS SUMMARY | 2024-12-14 14:24 | XMS_ITS | Clinical Summary ---
Author Organization [facility] Address [address] [place] [address] Care Team Providers Care Tennis Desk Team Member Name Role Phone Keyanna Merino HOLLIS Primary Care Provider Source Comments PLEASE NOTE, if this patient [...] Overview (03/14/2017): X ray done 03/04/17 @ [facility] - Mild Degenerative changes Heroin abuse ([facility]) 11/12/2016 Overview (11/12/2016): Seen in ER [facility] c/o Heroin overdose - admits snorting 4 bags - uses daily History of positive PPD 11/19/2015 History of recreational drug use 09/17/2015 Overview (09/17/2015): Last used 1 year ago Former cigarette smoker of unknown amount 2015 Anxiety 09/17/2015 Immunizations Immunization Administration Dates Next Due Hep B, Adult/Adol (QOSCBUP-B-ZPDDG/RECOMBIVAX-AD ULT) 02/11/2016 TDAP 11/19/2015 Family History Relation Name Status [...] 68 02/11/2016 4:09 PM EDT Temperature 36.7 C (98.1 F) 02/11/2016 4:09 PM EDT Respiratory Rate 17 02/11/2016 4:09 PM EDT Oxygen Saturation 96% 12/23/2015 11:51 AM EDT RA Inhaled Oxygen Concentration - - Weight 89.4 kg (197 lb) 02/11/2016 4:09 PM EDT Height 167.6 cm (5' 6 ) 10/01/2015 9:16 AM EDT Body Mass Index 31.8 10/01/2015 9:16 AM EDT Plan of Treatment Not on file Insurance [facility] [employer] PL[employer] Member Subscriber Plan / Payer (Ef fective 2015-Present) Name:Lai Mcwilliams Relation to Subscriber:Self Name:Keyur Mcwilliamsto Payer ID:[id number] Group ID:[id number] Type:Medicaid Address: [facility] [address] [place] [address] Care Teams Tennis Desk Team Member Relationship Specialty Start Date End Date Keyanna Merino FNP [address] [place] [address] PCP - General Family Medicine, DIRECTOR OF CLINICAL APPLICATIONS 08/07/15
[2024-12-14 14:29] VITALS: BP 149/88; PULSE 83; BMI 29.9
== END 2024-12-14 15:29 | disposition home or self-care (01) ==
PROVIDERS: PCP Internal Medicine; Visit Provider Nurse Practitioner
DX: K21.9 Gastro-esophageal reflux disease without esophagitis (principal); R76.8 Other specified abnormal immunological findings in serum; Z80.0 Family history of malignant neoplasm of digestive organs
CPT/HCPCS: 99203

== ENCOUNTER → 2024-12-14 14:21 | Outpatient (BNVA) | payer SELFPAY | PROVIDERS: PCP Internal Medicine; Visit Provider Nurse Practitioner | DX: Z01.818 Encounter for other preprocedural examination (principal); K21.9 Gastro-esophageal reflux disease without esophagitis; R76.8 Other specified abnormal immunological findings in serum; Z80.0 Family history of malignant neoplasm of digestive organs | CPT/HCPCS: 99202 ==